=== PATIENT | male | born 1985 | race Caucasian/White ===

== ENCOUNTER 2018-08-02 15:09 | Emergency (ER) | payer MEDICAID, SELFPAY ==
[2018-08-02 15:33] VITALS: PULSE 60; RESP 16; TEMP 36.5
--- NOTE | 2018-08-02 15:52 | ED.GENADUL_ITS ---
Discharge Plan Disposition Patient Disposition: HOME Condition: Good Discharge Details Chief Complaint: FacialProb Clinical Impression: Congestion of nasal sinus Reason For Visit: facial swelling Primary Care Provider: Joe Johansen ED Provider: Keith Castanon Home Meds and New Rx's Prescriptions: New fluticasone 50 mcg/actuation spray,suspension 2 spray JG DAILY Qty: 9.9 RF: 0 loratadine 10 mg tablet 10 mg PO DAILY Qty: 14 RF: 0 No Action selenium sulfide 180 ML shampoo 180 ml Topical PRN PRNRF: 0 omeprazole 20 MG capsule,delayed release(DR/EC) 40 mg PO DAILY RF: 0 dicyclomine 10 MG capsule 10 mg PO BID PRN PRNRF: 0 Discharge Instructions Instructions: Sinusitis (ED) Additional Instructions: Please take medications as directed. If you notice any worsening of your symptoms, or any new symptoms such as vomiting, diarrhea, fever, chills, shortness of breath, chest pain, numbness, weakness, or fainting , please return immediately to the emergency department for reevaluation. Please follow up with your primary care provider as soon as possible for reassessment and reevaluation. As always, it was a pleasure participating in your medical care today. Referrals: Joe Johansen [Primary Care Provider] - Medical Decision Making This is a pleasant 33-year-old male who presents today for evaluation of right- sided sinus pressure, with subjective swelling by the frenulum of his lip, as well as a subjective tingling-like sensation over the V2 distribution of the trigeminal nerve. Physical exam demonstrates no evidence of peridental abscess, significant swelling by the frenulum, signs of facial swelling, facial droop, neurologic deficits or other abnormality. For further diagnostic evaluation I did take a 22-gauge needle did a small laceration over the area of the frenulum where the patient felt that he had a fluid collection, there was no evidence of pus or other abnormality noted on aspiration. He has notable tenderness and fullness over the right frontal and maxillary sinus, I feel his signs and symptoms are clinically consistent with mild sinusitis in conjunction with slight nerve irritation of the V2 branch of the trigeminal nerve secondary to the sinusitis. As his symptoms have only been present for 3 days a do not think antibiotics are indicated at this time, especially in conjunction with his normal and reassuring vital signs, no signs or symptoms consistent with systemic infections. Patient will be given a steroid nasal spray, as well as antihistamine. We had a long and thorough discussion regarding red flags which to return including worsening of symptoms or signs or symptoms concerning for infection. I have extensively reviewed the treatment plan and discharge instructions with the patient and their family. I have addressed all patient concerns at this time. The patient and family was made aware of what symptoms to monitor for that would warrant a return to the emergency department. Discussed the plan with the patient and family, they demonstrate verbal understanding and agreement with our assessment and plan at this time. HPI General Date/Time Provider Initiated Documentation: 08/02/18 15:41 . HPI Narrative: This is a pleasant 33-year-old male with no significant past medical history who presents today for evaluation of subjective swelling by the frenulum of his upper lip, in conjunction with right-sided facial pressure. Patient states that for the last 3 days he has had these symptoms. He has some associated tingling-like sensation over his right upper lip, and the right cheek in the area of his maxillary sinus. He does admit to notable congestion in this area, the feeling of fluid in the area as well. He denies any weakness, change in vision, rash, ear pain, or other complaints. He has taken [id number] antihistamines and this is notably improved his symptoms. He denies any other complaints at this time. He does have a history of dental cavities, however he denies any purulent drainage, dental pain or pain with eating or chewing. Related Data Home Medications Medication Instructions Recorded Confirmed omeprazole 40 mg PO DAILY 10/28/15 08/02/18 dicyclomine 10 mg PO BID PRN PRN 04/29/16 08/02/18 selenium sulfide 180 ml TOPICAL PRN PRN script NS 01/12/18 08/02/18 fluticasone 2 spray JG DAILY #9.9 gm 08/02/18 loratadine 10 mg PO DAILY #14 tab 08/02/18 Previous Rx's Medication Instructions Recorded fluticasone 2 spray JG DAILY #9.9 gm 08/02/18 loratadine 10 mg PO DAILY #14 tab 08/02/18 Allergies Allergy/AdvReac Type Severity Reaction Status Date / Time clindamycin Allergy Unknown Unverified 02/18/18 09:40 General Stated Complaint: FacialProb SANDRA: 4 Review of Systems Review of Systems All systems reviewed & are unremarkable except as noted in HPI and below PFSH Medical History Abnormal weight gain Balanitis Chronic anemia Ganglion, right wrist Generalized abdominal pain History of infectious disease of central nervous system Impaired glucose tolerance Irritable bowel syndrome with diarrhea Localized enlarged lymph nodes Pharyngitis Pityriasis versicolor Surgical History Colonoscopy - IV Sedation Excision Ganglion Cyst right hand (02/18/18) Tonsillectomy Social History Smoking/Tobacco Use Status: Current every day Exam Narrative Exam Narrative: 1.Const: Well-nourished, Well-developed, appearing stated age 2.Eyes: PERRL, no conjunctival injection, and symmetrical lids. 3.ENT: Atraumatic external nose and ears. Moist MM. Neck: Symmetric, trachea midline, No thyromegaly. Oral cavity demonstrates absolute minimal swelling by the frenulum of the patient's upper lip. No swelling of the lip itself. No evidence of significant abscess. Notable dental caries in the front teeth, however no evidence of drainage. No evidence of otitis media, normal tympanic membranes and ear canals. Patient demonstrates good movement of cervical neck. There is no nuchal rigidity, no nuchal tenderness. Patient is able to flex the neck without any difficulty or significant pain. Notable tenderness on percussion of the frontal and maxillary sinuses on the right, not on the left though. No evidence of mastoid tenderness, or abnormalities in the nose. 4.CVS: +S1/S2, No murmurs or gallops. Peripheral pulses 2+ and equal in all extremities. Brisk capillary refill in all extremities. 5.RESP: Unlabored respiratory effort. Clear to auscultation bilaterally. No wheezes rales or rhonchi 6.GI: Soft, Nontender/Nondistended, No hepatosplenomegaly. No guarding or r ebound. 7.MSK: Normocephalic/Atraumatic, Extremities w/o deformity or ttp No cyanosis or clubbing, Normal movement of all extremities 8.Skin: Warm, Dry. No rashes or lesions. 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 Sensation grossly intact, no focal neurologic deficits. All 6 cardinal planes of vision are fully intact. No evidence of rotatory or vertical nystagmus. The patient demonstrated a normal khogal-fmzo-zpyier, good dexterity. There was no evidence of dysdiadochokinesia. Patient was able to ambulate without difficulty. There was no wide-based gait. Romberg, and ecaf-ji-vbwr are both normal on testing. Sensation was intact bilaterally as well as muscle strength bilaterally for all extremities. Patient was able to verbalize butter cup with no slurring, or miss pronunciation. Sub jective tingling over the V2 distribution of the trigeminal nerve, however intact sensation, no abnormalities or deficits to both light touch and pinprick. 10.Psych: (AAO) x3. Appropriate mood and affect Course Vital Signs Temperature 36.5 C 08/02/18 15:33 Pulse 60 08/02/18 15:33 Respiratory Rate 16 08/02/18 15:33 Temperature 36.5 C 08/02/18 15:33 Temperature Source Temporal Artery Scan 08/02/18 15:33 Pulse 60 08/02/18 15:33 Respiratory Rate 16 08/02/18 15:33 Respiratory Effort 08/02/18 15:37 Blood Pressure Position Sitting 08/02/18 15:33 Oxygen Delivery Method Room Air 08/02/18 15:33 Oxygen Flow Rate 0 08/02/18 15:33 Pain Level 5 08/02/18 15:33
[2018-08-02 16:05] VITALS: PULSE 60; RESP 16; TEMP 36.5; O2SAT 96
== END 2018-08-02 16:06 | disposition home or self-care (01) ==
PROVIDERS: Emergency Provider Student in an Organized Health Care Education/Training Program; PCP Family Medicine
DX: R09.81 Nasal congestion (principal)
CPT/HCPCS: 99283

== ENCOUNTER 2019-02-15 16:06 | Emergency (ER) | payer MEDICAID, SELFPAY ==
[2019-02-15 16:12] VITALS: BP 134/80; PULSE 63; RESP 16; TEMP 36.6; O2SAT 99
--- NOTE | 2019-02-15 17:19 | ED.GENADUL_ITS ---
Discharge Plan Disposition Patient Disposition: HOME Discharge Details Chief Complaint: DentalOral Clinical Impression: Abscess, dental Primary Care Provider: Joe Johansen ED Provider: Arnold Crystal Home Meds and New Rx's Prescriptions: New penicillin V potassium 500 mg tablet 500 mg PO QID Qty: 27 RF: 0 Continued omeprazole 20 MG capsule,delayed release(DR/EC) 40 mg PO DAILY RF: 0 dicyclomine 10 MG capsule 10 mg PO BID PRN PRNRF: 0 fluticasone propionate 50 mcg/actuation spray,suspension 2 spray JG DAILY Qty: 9.9 RF: 0 Discharge Instructions Instructions: Dental Abscess (ED) Additional Instructions: Please take antibiotic as prescribed. Please take ibuprofen over the counter. Take 600mg by mouth every 6 hours as needed for pain. Please a dentist to arrange timely outpatient follow-up. Call tomorrow. Return to the ER for any worsening or new concerning symptoms. Referrals: Joe Johansen [Primary Care Provider] - Discharge Data Discharge Date/Time-TO BE ENTERED AT DEPARTURE: 02/15/19 18:15 Medical Decision Making 33-year-old male here with dental abscess. Abscess incised and drained. Patient started on penicillin. Usual and customary discharge instructions were provided. Patient was encouraged to follow-up with a dentist. HPI General Mode of arrival: ambulatory . Date/Time Provider Initiated Documentation: 02/15/19 16:27 . Limitations to Documentation: no limitations . Information obtained by: patient . HPI Narrative: 33-year-old male with history of dental abscess in the past, here with dental pain and concern for dental infection. Patient notes he has had pain in his right upper incisor for the past 2 days. Pain has persisted. No modifiers. He has associated pain radiating into his right cheek. He notes he had some associated purulent discharge from adjacent tooth. No associated fever. Related Data Home Medications Medication Instructions Recorded Confirmed omeprazole 40 mg PO DAILY 10/28/15 02/15/19 dicyclomine 10 mg PO BID PRN PRN 04/29/16 02/15/19 fluticasone propionate 2 spray JG DAILY #9.9 gm 08/02/18 02/15/19 penicillin V potassium 500 mg PO QID #27 tab 02/15/19 Previous Rx's Medication Instructions Recorded fluticasone propionate 2 spray JG DAILY #9.9 gm 08/02/18 penicillin V potassium 500 mg PO QID #27 tab 02/15/19 Allergies Allergy/AdvReac Type Severity Reaction Status Date / Time sulfamethoxazole Allergy Intermediate Unverified 02/15/19 17:32 [From Bactrim] trimethoprim [From Bactrim] Allergy Intermediate Unverified 02/15/19 17:32 clindamycin Allergy Unknown Unverified 02/18/18 09:40 General Stated Complaint: DentalOral SANDRA: 4 Review of Systems Constitutional Denies fever(s) ENT Reports as per HPI [facility] Medical History Abnormal weight gain Balanitis Chronic anemia Ganglion, right wrist Generalized abdominal pain History of infectious disease of central nervous system Impaired glucose tolerance Irritable bowel syndrome with diarrhea Localized enlarged lymph nodes Pharyngitis Pityriasis versicolor Surgical History Colonoscopy - IV Sedation Excision Ganglion Cyst right hand (02/18/18) Tonsillectomy Social History Smoking/Tobacco Use Status: Current every day Drug use: Never Do you feel safe in your relationship?: Yes Exam Const General: cooperative and no acute distress HENMT Head: normocephalic Face and sinus: sinuses nontender, face symmetric, no erythema and no edema Mouth: moist mucous membranes Teeth and gingiva: poor dentition and other (Tooth #8 with mild swelling and tenderness along gumline) Throat: posterior oropharynx normal Eyes Conjunctivae: normal conjunctivae EOM: EOM intact bilaterally Neck Neck: trachea midline and supple Resp Auscultation: clear to auscultation bilaterally, no rales, no rhonchi and no wheezes Cardio Jugular venous pressure: no JVD Rate: regular rate and not tachycardic Rhythm: regular rhythm Skin General skin exam: no rashes or lesions noted Neuro General: alert, awake and tone normal Psych Appearance: grossly normal Mental Status: mental status grossly normal Course Vital Signs Temperature 36.6 C 02/15/19 16:12 Pulse 63 02/15/19 16:12 Respiratory Rate 16 02/15/19 16:12 Blood Pressure 134/80 02/15/19 16:12 Pulse Oximetry 99 08/20/19 16:12 Temperature 36.6 C 02/15/19 16:12 Temperature Source Temporal Artery Scan 02/15/19 16:12 Pulse 63 02/15/19 16:12 Respiratory Rate 16 02/15/19 16:12 Respiratory Effort Non-Labored 02/15/19 16:19 Blood Pressure 134/80 02/15/19 16:12 Blood Pressure Position Supine 02/15/19 16:12 Pulse Oximetry 99 02/15/19 16:12 Oxygen Delivery Method Room Air 02/15/19 16:12 Oxygen Flow Rate 0 02/15/19 16:12 Procedures Abscess I/D Site: Other (periapical dental) Side (if applicable): Right Local Anesthetic: Lidocaine 1% Amount of anesthesia used (mL): 2 Technique: Incised with #11 Blade Amount of fluid expressed (mL): 1 Complications: Bleeding (<1cc, resolved)
[2019-02-15] MEDS: Benzocaine 20% Gel 30 GM JAR MM (17:34)
== END 2019-02-15 18:15 | disposition home or self-care (01) ==
PROVIDERS: Emergency Provider Student in an Organized Health Care Education/Training Program; PCP Family Medicine
DX: K04.7 Periapical abscess without sinus (principal)
CPT/HCPCS: 99283

== ENCOUNTER 2019-06-10 14:42 | Emergency (ER) | payer MEDICAID, SELFPAY ==
[2019-06-10 14:46] VITALS: BP 131/105; PULSE 65; RESP 16; TEMP 36.5; O2SAT 96
--- NOTE | 2019-06-10 15:21 | DI.RAD_ITS ---
EXAM: XR HIP RT COMPLETE AP PELVIS CLINICAL HISTORY: R hip pain, r/o acute fracture. TECHNIQUE: 2D digital imaging was performed. COMPARISON: LUMBAR SPINE AP, LAT from 08/19/2015 FINDINGS: BONES: No acute fracture is present. No bony destructive lesion is seen. JOINTS: No dislocation present. SOFT TISSUE: Normal. IMPRESSION: Unremarkable radiographs of the right hip. Unremarkable radiographs of the pelvis.
--- NOTE | 2019-06-10 15:55 | ED.GENADUL_ITS ---
Discharge Plan Disposition Patient Disposition: HOME Condition: Good Discharge Details Chief Complaint: Orthopedic Clinical Impression: Muscle strain Primary Care Provider: Joe Johansen ED Provider: Slime Galvez Home Meds and New Rx's Prescriptions: Continued omeprazole 20 MG capsule,delayed release(DR/EC) 40 mg PO DAILY RF: 0 dicyclomine 10 MG capsule 10 mg PO BID PRN PRNRF: 0 fluticasone propionate 50 mcg/actuation spray,suspension 2 spray JG DAILY Qty: 9.9 RF: 0 Discharge Instructions Instructions: Muscle Strain (ED), Hip Pain (ED) Additional Instructions: Encourage hydration. Encourage gentle stretching and frequent walking. Attached is information on stretching activities that may help with your discomfort. We will also include physical therapy referral. Please continue with the Aleve twice a day. May augment this with ibuprofen throughout the course the day. Available [id number] Lidoderm patches or S to help with discomfortalonpas patches. Please follow-up with primary care in 2 weeks if not improved. Please encourage weight loss. Avoid activities that cause increased discomfort. Referrals: Joe Johansen [Primary Care Provider] - Discharge Data Discharge Date/Time-TO BE ENTERED AT DEPARTURE: 06/10/19 16:30 Medical Decision Making Patient is a 33-year-old obese man presenting today with chief complaint of right hip pain. 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 States that he was squatting down frequently. Noted after this to have an area of swelling primarily along the superior lateral aspect of his hip. Pain is experienced as a burning sensation that can radiate down the lateral mid thigh. No weakness. No numbness or tingling. Denies any actual trauma to the hip. Reports that the pain is increased and today he felt a pop over the lateral aspect of the hip. Denies any fevers or chills. No recent travel. No previous injuries or surgeries to this hip. Does not have any pain with range of motion of the hip. Does not experience any worsening in symptoms with movements. On exam, patient's has full range of motion of his right hip. He has 5-5 strength in all [place]. 2+ distal pulses. No pain over the greater trochanter. Pain is elicited with palpation about the iliac crest. Given the sensation of the popping, will obtain imaging although I find fracture less likely. XR reviewed by radiologist: FINDINGS: BONES: No acute fracture is present. No bony destructive lesion is seen. JOINTS: No dislocation present. SOFT TISSUE: Normal. IMPRESSION: Unremarkable radiographs of the right hip. Unremarkable radiographs of the pelvis. Discussed these findings with the patient. Advised that the onset of symptoms is most consistent with muscle strain. I encouraged weight loss as his exces sive weight is also likely contributing to his joint pain. He has reports chronic back pain which may also be contributing by his weight. I encouraged use of anti-inflammatories and Tylenol. Will be given a Lidoderm patch while here. Advise follow-up with primary care. We did discuss referral to physical therapy although he is concerned he may not be able to get to appointments. I did encourage that he try to get to a few and receive home exercises. We will attempt to find stretching techniques for the patient prior to discharge. He was given return precautions. All his questions and concerns were addressed and he is in agreement this plan. HPI General Mode of arrival: ambulatory . Date/Time Provider Initiated Documentation: 06/10/19 14:59 . Limitations to Documentation: no limitations . Information obtained by: patient and family (Accompanied by ) . History of Present Illness 33 year old M presents to the emergency department with the chief complaint of Right hip pain, described as moderate, with intensity rated at 7. Quality is described as burning and aching, and is localized to the right and lower extremity. Patient extremity (2 mid lateral right thigh). Patient started experiencing this day(s) (3) and it has been constant and now resolved. No relieving factors improve symptom(s), No exacerbating factors reported . Patient notes no other symptoms.. Patient did receive the following treatments prior to arrival, NSAID (Aleve this morning) Related Data Home Medications Medication Instructions Recorded Confirmed omeprazole 40 mg PO DAILY 10/28/15 06/10/19 dicyclomine 10 mg PO BID PRN PRN 04/29/16 06/10/19 fluticasone propionate 2 spray JG DAILY #9.9 gm 08/02/18 06/10/19 Previous Rx's Medication Instructions Recorded fluticasone propionate 2 spray JG DAILY #9.9 gm 08/02/18 Allergies Allergy/AdvReac Type Severity Reaction Status Date / Time sulfamethoxazole Allergy Intermediate Unverified 06/10/19 14:50 [From Bactrim] trimethoprim [From Bactrim] Allergy Intermediate Unverified 06/10/19 14:50 clindamycin Allergy Unknown Unverified 06/10/19 14:50 General Stated Complaint: Orthopedic SANDRA: 3 Review of Systems Constitutional Constitutional: Reports as per HPI, Denies chills, Denies fever(s), Denies headache(s) and Denies weakness ENT Ears, Nose, Mouth, and Throat: Denies headache(s) Cardiovascular Cardiovascular: Reports as per HPI Respiratory Respiratory: Reports as per HPI and Denies cough Musculoskeletal Musculoskeletal: Reports as per HPI and Denies tingling Integumentary/Breasts Skin/Breast: Reports as per HPI, Denies rash and Denies wounds Neurologic Neurologic: Reports as per HPI, Denies headache(s), Denies tingling, Denies paresthesias and Denies weakness [facility] Medical History Abnormal weight gain Balanitis Chronic anemia Ganglion, right wrist Generalized abdominal pain History of infectious disease of central nervous system Impaired glucose tolerance Irritable bowel syndrome with diarrhea Localized enlarged lymph nodes Pharyngitis Pityriasis versicolor Surgical History Colonoscopy - IV Sedation Excision Ganglion Cyst right hand (02/18/18) Tonsillectomy Social History Smoking/Tobacco Use Status: Former Tobacco Use Alcohol Intake: current Alcohol Intake frequency: holidays/special occasions only Drug use: Socially Substance use type: marijuana Do you feel safe at home: Yes Do you feel safe in your relationship?: Yes Exam Const General: cooperative, healthy appearing, comfortable, no acute distress, well developed and well groomed Nutritional Appearance: well nourished and obese Orientation: alert and awake Resp Effort & Inspection: normal respiratory effort, able to speak in complete sentences and no respiratory distress Cardio Rate: regular rate Rhythm: regular rhythm Skin General skin exam: no rashes or lesions noted Lesions: no lesions Rashes: no rashes Trauma: no lacerations or abrasions Neuro General: alert and awake Cognition: normal cognition Speech: speech normal Gait: normal gait Motor: muscle tone normal throughout Sensory Exam: no sensory deficits noted (No saddle paresthesias) Extrem General: normal to inspection, full ROM, normal capillary refill, no pedal edema, no calf tenderness and normal gait Right lower extremity: normal to inspection, full ROM, normal capillary refill, no joint enlargement, hip/thigh Details: normal to inspection, tenderness (Near the iliac crest) and normal ROM; no swelling, no abrasions, no lacerations, no ecchymosis, no crepitus, no deformity and no unusual warmth, knee Details: normal to inspection and normal ROM; no tenderness and no swelling and foot (2+ distal pulses ); no cyanosis and no edema Psych Appearance: grossly normal and well kempt Mental Status: mental status grossly normal Speech and Movement: speech and movement normal Course Vital Signs Vital signs: Vital Signs Temperature 36.5 C 06/10/19 14:46 Pulse 65 06/10/19 14:46 Respiratory Rate 16 06/10/19 14:46 Blood Pressure 131/105 H 06/10/19 14:46 Pulse Oximetry 96 06/10/19 14:46 Temperature 36.5 C 06/10/19 14:46 Temperature Source Temporal Artery Scan 06/10/19 14:46 Pulse 65 06/10/19 14:46 Respiratory Rate 16 06/10/19 14:46 Respiratory Effort Non-Labored 06/10/19 14:48 Blood Pressure 131/105 H 06/10/19 14:46 Blood Pressure Position Sitting 06/10/19 14:46 Pulse Oximetry 96 06/10/19 14:46 Oxygen Delivery Method Room Air 06/10/19 14:46 Oxygen Flow Rate 0 06/10/19 14:46 Pain Level 7 06/10/19 14:46
[2019-06-10] MEDS: Acetaminophen 500 MG TAB 1000 MG PO (16:27)
[2019-06-10] MEDS: Lidocaine 5% Patch 1 PATCH TP (16:27)
[2019-06-10 16:29] VITALS: BP 132/66; PULSE 19; RESP 19; TEMP 37.2; O2SAT 99
== END 2019-06-10 16:30 | disposition home or self-care (01) ==
PROVIDERS: Emergency Provider Physician Assistant; PCP Family Medicine
DX: S76.011A Strain of muscle, fascia and tendon of right hip, initial encounter (principal); X50.9XXA Other and unspecified overexertion or strenuous movements or postures, initial encounter
CPT/HCPCS: 99283; 73502

== ENCOUNTER 2020-12-28 16:53 | Outpatient (REF) | payer MEDICAID, SELFPAY ==
[2020-12-28 19:20] LABS: HCT 41.4 % (40.0-50.0); HGB 13.9 g/dL (13.5-17.5); MCH 30.5 pg (27.0-33.0); MCHC 33.6 % (32.0-36.0); MPV 11.8 fL (8.0-11.0); Platelet Count 258 10^3/uL (130-400); RBC 4.55 10^6/uL (4.36-5.78); RDW 12.8 % (11.8-14.1); RDW-SD 42.2 fL; WBC 9.04 10^3/uL (4.4-10.8)
[2020-12-28 19:35] LABS: ALT 62 U/L (16-63); AST 26 U/L (15-37); Albumin 4.2 g/dL (3.4-5.0); Alkaline Phosphatase 65 U/L (46-116); Anion Gap 11.6 mmol/L (3-11); BUN 11 mg/dL (7-18); Bilirubin, Total 0.5 mg/dL (0.2-1.0); CO2 24.4 mmol/L (21.0-32.0); Calculated LDL 172 mg/dL (<100); Chloride 105 mmol/L (98-107); Cholesterol 235 mg/dL (<200); Glucose 104 mg/dL (74-106); HDL Cholesterol 35 mg/dL (40-60); Potassium 3.8 mmol/L (3.5-5.1); Sodium 141 mmol/L (136-145); Total Protein 7.7 g/dL (6.4-8.2); Triglyceride 143 mg/dL (<150)
[2020-12-28 19:36] LABS: Hemoglobin A1C 7.1 % (<5.7)
== END 2020-12-28 16:54 | disposition home or self-care (01) ==
LOC: NCHCN 16:53
PROVIDERS: PCP Family Medicine; Visit Provider Nurse Practitioner Family
DX: R59.0 Localized enlarged lymph nodes (principal); D64.9 Anemia, unspecified; E66.9 Obesity, unspecified; K58.0 Irritable bowel syndrome with diarrhea
CPT/HCPCS: 80053; 80061; 85027; 83036

== ENCOUNTER 2021-03-27 19:00 | Emergency (ER) | payer MEDICAID, SELFPAY ==
[2021-03-27 19:15] VITALS: BP 138/84; PULSE 83; RESP 20; TEMP 36.7; O2SAT 98
--- NOTE | 2021-03-27 19:25 | ED.GENADUL_ITS ---
Discharge Plan Disposition Patient Disposition: HOME Condition: Stable Discharge Details Clinical Impression: Cough, Congested nose, Sinus pressure Primary Care Provider: Joe Johansen ED Provider: Slime Galvez Home Meds and New Rx's Prescriptions: No Action omeprazole 20 MG capsule,delayed release(DR/EC) 40 mg PO DAILY RF: 0 dicyclomine 10 MG capsule 10 mg PO BID PRN PRNRF: 0 fluticasone propionate 50 mcg/actuation spray,suspension 2 spray JG DAILY Qty: 9.9 RF: 0 Discharge Instructions Instructions: Acute Cough (ED) Additional Instructions: Imaging is reassuring. Your imaging and exam do not suggest recurrent pneumonia. This is likely a viral illness. Please encourage hydration. Tylenol and ibuprofen for discomfort. Particularly with your recent travel to [place], I am concerned that this could be COVID-19. Please quarantine until these results have returned. If you develop shortness of breath, chest pain or other new/worsening symptoms please seek care urgently with again otherwise, please follow-up with primary care in 1 to 2 weeks for reevaluation. Referrals: Joe Johansen [Primary Care Provider] - Discharge Data Discharge Date/Time-TO BE ENTERED AT DEPARTURE: 03/27/21 21:17 Medical Decision Making Patient is a pleasant 35-year-old male presenting today with chief complaint of cough and sinus pressure. He states that this began 1-1/2 days ago after coming back from [place]. He states that prior to going to [place], approximately 2 weeks ago, he was treated for pneumonia with Augmentin. Patient states he did have a full resolution of his symptoms at that time. Reports that when he landed from his recent trip, he had immediate onset of sinus pressure on the right side. Denies any fevers or chills. Denies any GI upset. Patient was vaccinated against COVID-19. On exam, patient appears nontoxic. He is overweight. His lungs are clear, normal cardiac exam. HEENT exam is concerning for mild erythema in the posterior oropharynx. He does state he has had some blood-tinged sputum. No gross hemoptysis. The patient was just recently treated for pneumonia, I am concerned that he did not have full resolution will obtain x-ray. We will also send out Covid testing. Patient otherwise appears nontoxic. No respiratory distress. No chest pain.. Patient symptoms not consistent with pulmonary embolism. Much more consistent with infectious etiology. FINDINGS: Lungs: The lungs are clear. There is no pulmonary vascular congestion. Pleural spaces: There are no pleural effusions present. Heart/Mediastinum: The cardiomediastinal silhouette is within normal limits. Bones/joints: Unremarkable. IMPRESSION: No active cardiopulmonary disease identified. Discussed findings with the patient. Advised likely viral illness. I did express concern potential COVID-19. Outpatient Covid testing has been sent. Encourage hydration. Advised Tylenol and/or ibuprofen as needed for discomfort. I did encourage you to quarantine until results are back. We will call him with the results. Return precautions were discussed. Advise follow-up with primary care 2weeks for reevaluation. All of his questions and cocnerns were addressed, he is in agreement with this plan. Patient declined work note. HPI General Mode of arrival: ambulatory . Date/Time Provider Initiated Documentation: 03/27/21 19:24 . Limitations to Documentation: no limitations . Information obtained by: patient and RN notes reviewed . History of Present Illness 35 year old M presents to the emergency department with the chief complaint of cough, congestion, described as moderate, with intensity rated at 1 (he denies any pain). and is localized to the face and chest. Patient started experiencing this day(s) (2) and it has been constant. No relieving factors improve symptom(s), No exacerbating factors reported . Patient notes cough and fever/chills (t max 99.5); denies chest pain, headaches, loss of appetite, nausea/vomiting, rash and shortness of breath. Patient did receive the following treatments prior to arrival, none Related Data Home Medications Medication Instructions Recorded Confirmed omeprazole 40 mg PO DAILY 10/28/15 03/27/21 dicyclomine 10 mg PO BID PRN PRN 04/29/16 03/27/21 fluticasone propionate 2 spray JG DAILY #9.9 gm 08/02/18 03/27/21 Previous Rx's Medication Instructions Recorded fluticasone propionate 2 spray JG DAILY #9.9 gm 08/02/18 Allergies Allergy/AdvReac Type Severity Reaction Status Date / Time sulfamethoxazole Allergy Intermediate Unverified 03/27/21 19:20 [From Bactrim] trimethoprim [From Bactrim] Allergy Intermediate Unverified 09/29/21 19:20 clindamycin Allergy Unknown Unverified 03/27/21 19:20 General Stated Complaint: RespSymp SANDRA: 4 Review of Systems Constitutional Constitutional: Reports as per HPI and Denies headache(s) Eyes Eyes: Reports as per HPI, Denies eye discharge and Denies irritation ENT Ears, Nose, Mouth, and Throat: Reports as per HPI and Denies headache(s) Cardiovascular Cardiovascular: Reports as per HPI, Denies chest pain and Denies dyspnea Respiratory Respiratory: Reports as per HPI, Reports chest congestion, Reports cough, Denies hemoptysis, Denies excessive phlegm production and Denies dyspnea Gastrointestinal Gastrointestinal: Reports as per HPI, Denies abdominal pain, Denies change in bowel habits, Denies nausea and Denies vomiting Integumentary/Breasts Skin/Breast: Reports as per HPI and Denies rash Neurologic Neurologic: Reports as per HPI and Denies headache(s) [facility] Medical History (Updated 03/27/21 @ 21:02 by TANVI Bagley) Abnormal weight gain Balanitis Chronic anemia Ganglion, right wrist Generalized abdominal pain History of infectious disease of central nervous system Impaired glucose tolerance Irritable bowel syndrome with diarrhea Localized enlarged lymph nodes Pharyngitis Pityriasis versicolor Surgical History Colonoscopy - IV Sedation Excision Ganglion Cyst right hand (02/18/18) Tonsillectomy Social History Smoking/Tobacco Use Status: Former Tobacco Use Smoking risk assessment performed?: Yes Alcohol Intake: current Alcohol Intake frequency: holidays/special occasions only Drug use: Socially Substance use type: marijuana Do you feel safe at home: Yes Do you feel safe in your relationship?: Yes Exam Const General: cooperative, healthy appearing, comfortable, no acute distress, well developed and well groomed Nutritional Appearance: well nourished and obese Orientation: alert and awake [facility] Head: normal to inspection, normocephalic and atraumatic Ears: hearing grossly normal bilaterally, external ears normal and TM's normal bilaterally General nose exam: external nose normal and nares normal Face and sinus: normal facial exam, sinuses nontender and face symmetric Mouth: oral mucosae normal, lip normal, tongue normal, oropharynx normal and moist mucous membranes Teeth and gingiva: dentition normal Throat: posterior oropharynx abnormal (mild erythema), tonsils normal and uvula midline Eyes General: appearance normal, both eyes and all related structures Neck Neck: normal visual inspection, full ROM and no lymphadenopathy Resp Effort & Inspection: normal respiratory effort, able to speak in complete sentences and no respiratory distress Auscultation: clear to auscultation bilaterally, no rales, no rhonchi and no wheezes Cardio Rate: regular rate Rhythm: regular rhythm Heart Sounds: S1 normal and S2 normal Skin General skin exam: no rashes or lesions noted Neuro General: patient alert and patient awake Cognition: normal cognition Speech: speech normal Gait: normal gait Psych Appearance: grossly normal and well kempt Mental Status: mental status grossly normal Speech and Movement: speech and movement normal Course Vital Signs Vital signs: Vital Signs Temperature 36.7 C 03/27/21 19:15 Pulse 83 03/27/21 19:15 Respiratory Rate 20 03/27/21 19:15 Blood Pressure 138/84 03/27/21 19:15 Pulse Oximetry 98 03/27/21 19:15 Temperature 36.7 C 03/27/21 19:15 Temperature Source Temporal Artery Scan 03/27/21 19:15 Pulse 83 03/27/21 19:15 Respiratory Rate 20 03/27/21 19:15 Respiratory Effort Non-Labored 03/27/21 19:21 Blood Pressure 138/84 03/27/21 19:15 Blood Pressure Position Sitting 03/27/21 19:15 Pulse Oximetry 98 03/27/21 19:15 Oxygen Delivery Method Room Air 03/27/21 19:15 Oxygen Flow Rate 0 03/27/21 19:15 Pain Level 2 03/27/21 19:15 PAWSS Pt Consumed Any Amount of Alcohol Within the Last 30 days OR had positive [place] Upon Admission: No
--- NOTE | 2021-03-27 19:51 | DI.RAD_ITS ---
Exam(s) XR PORTABLE CHEST AP EXAM: XR PORTABLE CHEST AP CLINICAL HISTORY: cough, recent pneumonia TECHNIQUE: 2D digital imaging was performed of the chest. Two images were obtained. AP views were obtained. COMPARISON: CR CHEST 2 VIEWS PA,LAT from 10/28/2015 CR CHEST 2 VIEWS PA,LAT from 10/28/2015 FINDINGS: MEDIASTINUM: Normal. HEART: Normal. PULMONARY VASCULATURE: Normal. LUNGS: Clear. PLEURAL SPACE: No pleural effusion or pneumothorax. BONE:Within normal limits for the patient's age. OTHER FINDINGS:Normal. IMPRESSION: No acute pulmonary findings. DATA REPOSITORY: RADIATION DOSE DELIVERED:
--- NOTE | 2021-03-27 20:25 | DI.VRAD_ITS ---
PROCEDURE INFORMATION: Exam: XR Chest Exam date and time: 03/27/2021 7:39 PM Age: 35 years old Clinical indication: Patient HX: Productive cough TECHNIQUE: Imaging protocol: XR of the chest. Views: 1 view. COMPARISON: CR CHEST 2 VIEWS PA,LAT 10/28/2015 11:09 PM FINDINGS: Lungs: The lungs are clear. There is no pulmonary vascular congestion. Pleural spaces: There are no pleural effusions present. Heart/Mediastinum: The cardiomediastinal silhouette is within normal limits. Bones/joints: Unremarkable. IMPRESSION: No active cardiopulmonary disease identified. Dictated and Authenticated by: Charli Ramírez MD. Ordering:CHERYL Palencia MD
[2021-03-27 21:11] VITALS: BP 135/90; PULSE 82; RESP 20; O2SAT 98
[2021-03-29 11:04] LABS: COVID-19 RT-PCR UVMMC Result Positive (Negative)
--- NOTE | 2021-03-29 13:19 | W.ED.FU ---
Patient notified regarding positive Covid test, symptomatic February, made aware that he should isolate for at least 10 days and given a work note
== END 2021-03-27 21:17 | disposition home or self-care (01) ==
PROVIDERS: Emergency Provider Physician Assistant; PCP Family Medicine
DX: R05 Cough (principal); R09.81 Nasal congestion; J34.89 Other specified disorders of nose and nasal sinuses; Z20.822 Contact with and (suspected) exposure to COVID-19
CPT/HCPCS: 99283; U0003; 71045

== ENCOUNTER 2021-04-02 02:52 | Outpatient (CLI) | payer MEDICAID, SELFPAY ==
[2021-04-02 07:55] VITALS: BP 109/77; PULSE 61; RESP 17; TEMP 36.3; O2SAT 97
[2021-04-02 08:19] VITALS: BP 123/80; PULSE 65; RESP 18; TEMP 36.4; O2SAT 96
[2021-04-02 08:50] VITALS: BP 124/81; PULSE 64; RESP 17; TEMP 36.3; O2SAT 95
[2021-04-02 09:20] VITALS: BP 121/81; PULSE 64; RESP 18; TEMP 36.3; O2SAT 97
[2021-04-02 09:50] VITALS: BP 127/81; PULSE 61; RESP 17; TEMP 36.4; O2SAT 96
== END 2021-04-02 02:53 | disposition home or self-care (01) ==
LOC: INF 02:53
PROVIDERS: PCP Family Medicine; Visit Provider Family Medicine
DX: U07.1 COVID-19 (principal)
CPT/HCPCS: 96365

== ENCOUNTER 2021-10-10 10:13 | Outpatient (REF) | payer MEDICAID, SELFPAY ==
[2021-10-10 14:19] LABS: Calculated LDL 166 mg/dL (<100); Cholesterol 223 mg/dL (<200); HDL Cholesterol 41 mg/dL (40-60); Triglyceride 80 mg/dL (<150)
[2021-10-10 14:40] LABS: Hemoglobin A1C 6.1 % (<5.7)
== END 2021-10-10 10:14 | disposition home or self-care (01) ==
LOC: NCHCN 10:13
PROVIDERS: PCP Family Medicine; Visit Provider Nurse Practitioner Family
DX: E11.9 Type 2 diabetes mellitus without complications (principal)
CPT/HCPCS: 80061; 83036

== ENCOUNTER 2021-10-11 00:33 | Outpatient (CLI) | payer MEDICAID, SELFPAY ==
--- NOTE | 2021-10-11 07:45 | DI.CT_ITS ---
Exam(s) CT SINUS WO EXAM: CT SINUS WO CLINICAL HISTORY: chronic sinusitis right side,j32.9. Evaluate for sinusitis. TECHNIQUE: Imaging Protocol: Axial computed tomography images with coronal and sagittal reformatted images were created and reviewed. COMPARISON: CT HEAD AND CSPINE W/O CONTRAST from 08/19/2015 FINDINGS: AXIAL IMAGES: Frontal sinuses: Normally aerated. Ethmoid air cells: Normally aerated. Maxillary sinuses: Normally aerated. Sphenoid sinus: Normally aerated. Ostiomeatal complexes: Patent. Osseous nasal septum: The nasal septum mildly deviates to the left. Visualized regional soft tissues: No acute findings. Orbits: Unremarkable. Bones: Unremarkable. Mastoid Air Cells: Normally aerated. IMPRESSION: No evidence of sinus disease. RADIATION DOSE DELIVERED: 133.36mGy.cm Total DLP 133.36mGy.cm Total DLP DATA REPOSITORY: All CT scans at this facility are submitted to the National Radiology Data Registry (NRDR) Dose Index Registry (DIR) with the [employer] (ACR). RADIATION OPTIMIZATION: All CT scans at this facility use at least one of these dose optimization te chniques: automated exposure control; mA and/or kV adjustment per patient size (includes targeted exa ms where dose is matched to clinical indication); or iterative reconstruction.
== END 2021-10-11 00:53 ==
PROVIDERS: PCP Family Medicine; Visit Provider Otolaryngology
DX: J34.2 Deviated nasal septum; J32.8 Other chronic sinusitis
CPT/HCPCS: 70486

== ENCOUNTER 2021-12-08 14:52 | Emergency (ER) | payer MEDICAID, SELFPAY ==
[2021-12-08 14:58] VITALS: BP 121/79; PULSE 85; RESP 16; TEMP 36.4; O2SAT 96
--- NOTE | 2021-12-08 15:04 | ED.GENADUL_ITS ---
Discharge Plan Disposition Patient Disposition: HOME Condition: Stable Discharge Details Clinical Impression: Injury of knee, right Primary Care Provider: Lolita Rick ED Provider: Roly Garcias Home Meds and New Rx's Prescriptions: No Action albuterol sulfate [ProAir HFA] 90 mcg/actuation HFA aerosol inhaler 2 puff inhalation Q6H PRN nystatin 100,000 unit/gram cream 1 applic topical BID selenium sulfide 2.5 % lotion 1 applic topical QWEEK omeprazole 20 MG capsule,delayed release(DR/EC) 40 mg PO DAILY dicyclomine 10 MG capsule 10 mg PO BID PRN PRN Discharge Instructions Instructions: Knee Sprain (ED), Hinged Knee Brace (ED) Additional Instructions: Review of your x-rays show no acute signs of fracture or dislocation. I suspect either meniscus or ligament injury to your right knee. You may perform weightbearing activities as tolerated and use the hinged knee brace for discomfort and activity. You may continue to take [id number] pain medication as required and apply ice for swelling. Just do not apply ice for greater than 20 minutes and allow at least 20 minutes in between applications. We have given a referral to the orthopedist for reassessment of your knee. Please call the office tomorrow for arrangement of your follow-up appointment. Referrals: [facility] [Provider Group] Medical Decision Making Patient presenting to the emergency department for chief complaint of right knee injury. he reports a twisting type injury to the right knee while walking down the steps backwards. Patient denies any other injury or trauma. Patient has been using a Velcro knee brace for the past week but is still continuing to have pain and discomfort. Physical exam shows tenderness to the medial joint line with patient reporting pain with twisting type motions and discomfort to that medial aspect. Exam is otherwise unremarkable. We will plan on performing radiological imaging to ensure no signs of acute fracture or obvious findings on plain film imaging but I suspect either meniscus or ligamentous injury to the lateral aspect of the knee. Patient denies any need for pain medication pending x-rays. My review of plain film imaging shows no acute fracture or dislocation. We will plan on discharging patient with hinged knee brace and having patient follow-up with orthopedist for reassessment given that it is already been 1 week and patient is still having significant amount of pain and discomfort. Will encourage patient to use [id number] pain medication and ice as needed. After discussion of diagnosis and plan of care patient has no further needs, questions, or concerns and states clear understanding to return to the emergency department for any worsening symptoms. This documentation was generated using [employer] system, please disregard any oddities of phrase or misspellings. Imaging Data Radiologic Study: Imaging: X-Ray Radiologist's impression: IMPRESSION: Small knee joint effusion. Right knee otherwise normal. HPI General Mode of arrival: ambulatory . Date/Time Provider Initiated Documentation: 12/08/21 14:56 . Limitations to Documentation: no limitations . Information obtained by: patient and RN notes reviewed . History of Present Illness 36 year old M presents to the emergency department with the chief complaint of right knee injury, described as mild, with intensity rated at 2. Quality is described as aching, and is localized to the right and lower extremity. Patient reports no radiation. Patient started experiencing this week(s) (1) and it has been constant. No relieving factors improve symptom(s), Movement worsens symptoms . Patient notes no other symptoms.. Patient did receive the following treatments prior to arrival, NSAID Related Data Home Medications Medication Instructions Recorded Confirmed omeprazole 20 mg capsule,delayed 40 mg PO DAILY 10/28/15 12/08/21 release dicyclomine 10 mg capsule 10 mg PO BID PRN PRN 04/29/16 12/08/21 albuterol sulfate 90 mcg/actuation 2 puff inhalation Q6H PRN 08/01/21 12/08/21 aerosol inhaler (ProAir HFA) nystatin 100,000 unit/gram topical 1 applic topical BID 08/01/21 12/08/21 cream selenium sulfide 2.5 % lotion 1 applic topical QWEEK 08/01/21 12/08/21 Allergies Allergy/AdvReac Type Severity Reaction Status Date / Time sulfamethoxazole Allergy Intermediate Unverified 12/08/21 15:41 [From Bactrim] trimethoprim [From Bactrim] Allergy Intermediate Unverified 12/08/21 15:41 clindamycin Allergy Unknown Unverified 12/08/21 15:41 General Stated Complaint: Orthopedic SANDRA: 4 Review of Systems Narrative: 6 systems reviewed and unremarkable except what is marked below. Musculoskeletal Musculoskeletal: Denies back pain, Reports joint swelling, Reports limited range of motion, Denies numbness and Denies tingling Integumentary/Breasts Skin/Breast: Denies wounds Neurologic Neurologic: Denies numbness and Denies tingling PFSH All Active Problems (Updated 12/08/21 @ 15:49 by Roly Garcias NP) Injury of knee, right (Acute) Weight gain (Acute) Snoring (Acute) Chronic headaches (Acute) Chronic sinusitis (Acute) Cough (Acute) Congested nose (Acute) Sinus pressure (Acute) Medical History Abnormal weight gain Anemia Balanitis Cervical lymphadenopathy Chronic anemia COVID-19 Depressed Diabetes mellitus Ganglion, right wrist Generalized abdominal pain History of infectious disease of central nervous system Hyperlipidemia Impaired glucose tolerance Irritable bowel syndrome with diarrhea Localized enlarged lymph nodes Obesity Pharyngitis Pityriasis versicolor Rhinosinusitis Surgical History Colonoscopy - IV Sedation Excision Ganglion Cyst right hand (02/18/18) Tonsillectomy Family History Father Diabetes Lung cancer Social History Smoking/Tobacco Use Status: Former Tobacco Use Smoking risk assessment performed?: Yes Alcohol Intake: current Alcohol Intake frequency: holidays/special occasions only Drug use: Socially Substance use type: marijuana Do you feel safe at home: Yes Do you feel safe in your relationship?: Yes Exam Const General: cooperative, no acute distress and not ill appearing Orientation: alert, awake and oriented x3 Resp Effort & Inspection: normal respiratory effort, able to speak in complete sentences and no respiratory distress Cardio Rate: regular rate Rhythm: regular rhythm Pulses: dorsalis pedis present Skin General skin exam: no rashes or lesions noted Neuro General: patient alert, patient awake, patient oriented x3, moves all extremities and no focal motor deficits Sensory Exam: no sensory deficits noted Extrem General: normal exam except as noted Right lower extremity: knee Details: tenderness Location: of the medial joint line, swelling Location: of the proximal tibia Details: medially, normal ROM and knee ligament exam abnormal Details: valgus stress test normal Details: laxity noted, varus stress test normal Details: pain noted (To medial aspect) and pain with axial loading; no abrasions, no lacerations, no ecchymosis, no crepitus and no deformity Course Vital Signs Vital signs: Vital Signs Temperature 36.4 C L 12/08/21 14:58 Pulse 85 12/08/21 14:58 Respiratory Rate 16 12/08/21 14:58 Blood Pressure 121/79 12/08/21 14:58 Pulse Oximetry 96 12/08/21 14:58 Temperature 36.4 C L 12/08/21 14:58 Pulse 85 12/08/21 14:58 Respiratory Rate 16 12/08/21 14:58 Blood Pressure 121/79 12/08/21 14:58 Pulse Oximetry 96 12/08/21 14:58 Oxygen Delivery Method Room Air 12/08/21 14:58 Oxygen Flow Rate 0 12/08/21 14:58
--- NOTE | 2021-12-08 15:23 | DI.RAD_ITS ---
Exam(s) XR KNEE RT 3V AP,LAT,CHRIS EXAM: XR KNEE RT 3V AP,LAT,CHRIS CLINICAL HISTORY: medial kne pain after twist injury. TECHNIQUE: 2D digital imaging was performed. Three views. COMPARISON: CR RIGHT TIB/FIB from 12/01/2016 MR MRI R LOWER JOINT WO CONT from 02/24/2017 FINDINGS: BONES: No acute fracture is present. No bony destructive lesion is seen. JOINTS: The knee is normally aligned. No joint effusion is seen. A small circumscribed bony density is seen projecting above the tibial spines, nonacute. This is seen on prior exam. SOFT TISSUE: Normal. IMPRESSION: No acute abnormality.. DATA REPOSITORY: RADIATION DOSE DELIVERED:
--- NOTE | 2021-12-08 15:49 | DI.VRAD_ITS ---
PROCEDURE INFORMATION: Exam: XR Right Knee Exam date and time: 12/08/2021 3:17 PM Age: 36 years old Clinical indication: Injury or trauma; Fall; Sprain or strain; Patella or knee; Right; Patient HX: Medial knee pain after twisting injury. TECHNIQUE: Imaging protocol: XR Right knee. Views: 3 views. COMPARISON: MRI R LOWER JOINT WO CONT 02/24/2017 3:51 PM FINDINGS: Bones/joints: Normal. Soft tissues: Normal. Other findings: Small effusion. IMPRESSION: Small knee joint effusion. Right knee otherwise normal. Dictated and Authenticated by: Mary Macedo MD. Ordering:OPHELIA Dunham MD
--- NOTE | 2021-12-08 15:57 | NUR.NOTE ---
Nursing Note: referred to ortho for right knne injury, meniscus vs ligament
[2021-12-08 16:03] VITALS: PULSE 82; RESP 16; O2SAT 99
== END 2021-12-08 16:05 | disposition home or self-care (01) ==
PROVIDERS: Emergency Provider Nurse Practitioner Family; PCP Nurse Practitioner Family
DX: S89.81XA Other specified injuries of right lower leg, initial encounter (principal); X50.1XXA Overexertion from prolonged static or awkward postures, initial encounter
CPT/HCPCS: 29505; 73562; 99283

== ENCOUNTER 2022-01-31 14:39 | Outpatient (REF) | payer MEDICAID, SELFPAY ==
[2022-01-31 19:14] LABS: Calculated LDL 91 mg/dL (<100); Cholesterol 145 mg/dL (<200); HDL Cholesterol 41 mg/dL (40-60); Triglyceride 67 mg/dL (<150)
== END 2022-01-31 14:40 | disposition home or self-care (01) ==
LOC: NCHCN 14:39
PROVIDERS: PCP Physician Assistant Medical; Visit Provider Nurse Practitioner Family
DX: E78.5 Hyperlipidemia, unspecified (principal); E11.9 Type 2 diabetes mellitus without complications
CPT/HCPCS: 80061; 83036

== ENCOUNTER → 2022-05-09 00:10 | Outpatient (CLI) | payer MEDICAID, SELFPAY ==
--- NOTE | 2022-05-09 06:45 | DI.MRI_ITS ---
Exam(s) MR LOWER JOINT RT WO EXAM: MR LOWER JOINT RT WO CLINICAL HISTORY: PAIN,rt acl tear, internal derangement rt knee, m23.91,s83.511a TECHNIQUE: Multiplanar multisequence MRI of the knee was performed. COMPARISON: MR MRI R LOWER JOINT WO CONT from 02/24/2017 FINDINGS: EFFUSION: There is a moderate size right knee joint effusion. There is no King cyst in the poplitea l fossa. MARROW:There is no evidence of fracture, bone contusion, nor osteochondral defects.. There are no si gnificant osseous lesions. PATELLOFEMORAL COMPARTMENT: The quadriceps tendon is intact. The patellar ligament is intact. There is no significant thinning of the retropatellar cartilage. No evidence of fissure nor signific ant chondral defect. No osteochondral defect at this level.There is no intraosseous signal to sugges t recent patellar dislocation. There are no patellar retinacular tears. CRUCIATE LIGAMENTS: The anterior cruciate ligament is somewhat attenuated, reflecting the significant tear in the structure that was evident on the prior January 2017 study.The posterior cruciate ligamen t is intact. MEDIAL COMPARTMENT/MEDIAL MENISCUS: There appears to be an element of tearing in the inner 3rd of the posterior horn of the medial meniscus. There is a 4 x 3 millimeter ossified density in the intercon dylar notch located just anterior to the root of the medial meniscus 1 the anterior horn also exhibit s tearing.. Mild cartilage narrowing over the medial condyle. No evidence of osteochondral defect. No prominent subarticular edema. No osteophytes. MEDIAL COLLATERAL LIGAMENT: Intact LATERAL COMPARTMENT/LATERAL MENISCUS: There is no evidence of lateral meniscal tear.There are no filippo dral defects, osteochondral defects, subarticular marrow edema, nor osteophytes evident. ILIOTIBIAL BAND: Intact LATERAL COLLATERAL LIGAMENT COMPLEX: The fibular collateral ligament is intact. The biceps femoris t endon is intact.Popliteus muscle and tendon are intact. IMPRESSION: 1. When compared to the prior MRI of 2016 the previously torn ACL appears thinner than typical of the present study but has the appearance of the [place] ACL and does not exhibit abnormal high signal. M ost probably represents healing of a previously incomplete ACL tear. 2. There are tears in both anterior posterior horns of the medial meniscus. 3. Moderate-sized joint effusion. No King cyst. DATA REPOSITORY:
== END ==
PROVIDERS: PCP Physician Assistant Medical; Visit Provider Student in an Organized Health Care Education/Training Program
DX: M25.461 Effusion, right knee (principal); S83.511A Sprain of anterior cruciate ligament of right knee, initial encounter
CPT/HCPCS: 73721

== ENCOUNTER 2022-12-29 01:47 | Outpatient (CLI) | payer MEDICAID, SELFPAY ==
--- NOTE | 2022-12-29 | DI.CT_ITS ---
Exam(s) CT FACIAL W EXAM: CT FACIAL W CLINICAL HISTORY: FACIAL SWELLING, R22.0, PAIN, RT NOSE AND MAXILLARY, S/P KICKED IN FACE,. TECHNIQUE: Imaging Protocol: Axial computed tomography images with coronal and sagittal reformatted images were created and reviewed CONTRAST MATERIAL: Intravenous: Omnipaque 350 Contrast volume:100 cc COMPARISON: CT CT SINUS WO from 10/11/2021 FINDINGS: Facial Bones: No definite fracture is noted in facial bones. Sinuses and Mastoids: Unremarkable. Globes, extraocular muscles, optic nerves and retrobulbar fat: Normal. Upper aerodigestive tract: Normal. Mandible and bilateral temporomandibular joints: Normal. Soft tissues: Normal. IMPRESSION: No evidence of fracture/dislocation in facial bones. RADIATION DOSE DELIVERED: 997.49mGy.cm Total DLP 997.49mGy.cm Total DLP 997.49mGy.cm Total DLP 997.49mGy.cm Total DLP DATA REPOSITORY: All CT scans at this facility are submitted to the National Radiology Data Registry (NRDR) Dose Index Registry (DIR) with the [employer] (ACR). RADIATION OPTIMIZATION: All CT scans at this facility use at least one of these dose optimization te chniques: automated exposure control; mA and/or kV adjustment per patient size (includes targeted exa ms where dose is matched to clinical indication); or iterative reconstruction.
[2022-12-29 14:25] LABS: Anion Gap 8.1 mmol/L (3-11); BUN 13 mg/dL (7-18); CO2 26.9 mmol/L (21.0-32.0); Calcium 9.1 mg/dL (8.5-10.1); Chloride 104 mmol/L (98-107); Estimated GFR 99.41 (mL/min/1.73m2); Glucose 89 mg/dL (74-106); Potassium 3.7 mmol/L (3.5-5.1); Sodium 139 mmol/L (136-145)
[2022-12-29] MEDS: Omnipaque 350 MG/ML 500 ML BTL-Imaging package IJ (15:37)
[2022-12-29] MEDS: Normal Saline - Diluent 50 ML VIAL IJ (15:38)
== END 2022-12-29 02:07 ==
LOC: DI 01:47
PROVIDERS: PCP Physician Assistant Medical; Visit Provider Physician Assistant Medical
DX: R22.0 Localized swelling, mass and lump, head (principal); S09.93XA Unspecified injury of face, initial encounter; X58.XXXA Exposure to other specified factors, initial encounter
CPT/HCPCS: 80048; 70487

== ENCOUNTER 2023-01-01 18:29 | Emergency (ER) | payer MEDICAID, SELFPAY ==
[2023-01-01 18:31] VITALS: BP 126/80; PULSE 64; RESP 18; TEMP 37.2; O2SAT 98
--- NOTE | 2023-01-01 19:16 | ED.GENADUL_ITS ---
Discharge Plan Disposition Patient Disposition: Home Condition: Stable Discharge Details Clinical Impression: Cellulitis Primary Care Provider: Lloyd Leslie ED Provider: Guillermo Nieves Home Meds and New Rx's Prescriptions: New amoxicillin 875 mg tablet 875 mg PO BID 5 Days Qty: 10 0RF doxycycline hyclate 100 mg capsule 100 mg PO BID 5 Days Qty: 10 0RF No Action albuterol sulfate [ProAir HFA] 90 mcg/actuation HFA aerosol inhaler 2 puff inhalation Q6H PRN nystatin 100,000 unit/gram cream 1 applic topical BID selenium sulfide 2.5 % lotion 1 applic topical QWEEK metformin 500 mg tablet 500 mg PO DAILY rosuvastatin 10 mg tablet 10 mg PO DAILY omeprazole 20 MG capsule,delayed release(DR/EC) 40 mg PO DAILY dicyclomine 10 MG capsule 10 mg PO BID PRN PRN amoxicillin-pot clavulanate 875-125 mg tablet Discharge Instructions Instructions: Cellulitis (ED) Additional Instructions: Please keep wound clean and dry Medical Decision Making 37-year-old male history of diabetes presents with wound to left calf, believes he had a bug bite, area of induration erythema to left calf approximately 3 cm diameter, no lymphangitic streaking no crepitus no fluctuance no purulence. Likely localized cellulitis. Given history of diabetes and community prevalence of MRSA will cover with amoxicillin and doxycycline. Home care instructions and strict return precautions for any worsening symptoms HPI General Date/Time Provider Initiated Documentation: 01/01/23 18:37 . HPI Narrative: 37-year-old male history of diabetes presents with wound to left calf, believes he may have had a bug bite in this region noticed redness to the area. No fevers chills sweats or other systemic signs of illness Related Data Home Medications Medication Instructions Recorded Confirmed omeprazole 20 mg capsule,delayed 40 mg PO DAILY 10/28/15 01/01/23 release dicyclomine 10 mg capsule 10 mg PO BID PRN PRN 04/29/16 01/01/23 albuterol sulfate 90 mcg/actuation 2 puff inhalation Q6H PRN 08/01/21 01/01/23 aerosol inhaler (ProAir HFA) nystatin 100,000 unit/gram topical 1 applic topical BID 08/01/21 01/01/23 cream selenium sulfide 2.5 % lotion 1 applic topical QWEEK 08/01/21 01/01/23 metformin 500 mg tablet 500 mg PO DAILY 12/25/21 01/01/23 rosuvastatin 10 mg tablet 10 mg PO DAILY 12/25/21 01/01/23 amoxicillin 875 mg tablet 875 mg PO BID 5 days #10 tabs 01/01/23 amoxicillin 875 mg-potassium tab 01/01/23 01/01/23 clavulanate 125 mg tablet doxycycline hyclate 100 mg capsule 100 mg PO BID 5 days #10 caps 01/01/23 Previous Rx's Medication Instructions Recorded amoxicillin 875 mg tablet 875 mg PO BID 5 days #10 tabs 01/01/23 doxycycline hyclate 100 mg capsule 100 mg PO BID 5 days #10 caps 01/01/23 Allergies Allergy/AdvReac Type Severity Reaction Status Date / Time sulfamethoxazole Allergy Intermediate Verified 01/01/23 18:34 [From Bactrim] trimethoprim [From Bactrim] Allergy Intermediate Verified 01/01/23 18:34 clindamycin Allergy Unknown Verified 01/01/23 18:34 General Stated Complaint: [facility] SANDRA: 4 Review of Systems Narrative: Review of Systems Constitutional: negative Eyes: negative ENT: negative Cardiovascular: negative Respiratory: negative Gastrointestinal: negative : negative Musculoskeletal: negative Skin: Skin lesion Neurologic: negative Psych: negative PFSH All Active Problems (Updated 01/01/23 @ 19:19 by Guillermo Nieves MD) Cellulitis (Acute) Right ACL tear (Acute 03/30/17) Weight gain (Acute) Snoring (Acute) Chronic headaches (Acute) Chronic sinusitis (Acute) Cough (Acute) Congested nose (Acute) Sinus pressure (Acute) Medical History Abnormal weight gain Anemia Balanitis Cervical lymphadenopathy Chronic anemia COVID-19 Depressed Diabetes mellitus Ganglion, right wrist Generalized abdominal pain History of infectious disease of central nervous system Hyperlipidemia Impaired glucose tolerance Irritable bowel syndrome with diarrhea Localized enlarged lymph nodes Obesity Pharyngitis Pityriasis versicolor Rhinosinusitis Surgical History Colonoscopy - IV Sedation Excision Ganglion Cyst right hand (02/18/18) Tonsillectomy Family History Father Diabetes Lung cancer Social History Smoking/Tobacco Use Status: Former Tobacco Use Smoking risk assessment performed?: Yes Alcohol Intake: current Alcohol Intake frequency: holidays/special occasions o nly Drug use: Socially Substance use type: marijuana Current gender identity: male Do you feel safe at home: Yes Do you feel safe in your relationship?: Yes Exam Narrative Exam Narrative: Physical Examination General: alert, awake, cooperative, resting comfortably, no acute distress Skin: 3 cm diameter region of circumscribed erythema and induration to left calf, central shallow ulceration, no fluctuance or purulence no lymphangitic streaking no crepitus Course Vital Signs Vital signs: Vital Signs Temperature 37.2 C 01/01/23 18:31 Pulse 64 01/01/23 18:31 Respiratory Rate 18 01/01/23 18:31 Blood Pressure 126/80 01/01/23 18:31 Pulse Oximetry 98 01/01/23 18:31 Temperature 37.2 C 01/01/23 18:31 Temperature Source Skin 01/01/23 18:31 Pulse 64 01/01/23 18:31 Respiratory Rate 18 01/01/23 18:31 Respiratory Effort Normal 01/01/23 19:01 Blood Pressure 126/80 01/01/23 18:31 Pulse Oximetry 98 01/01/23 18:31 Oxygen Delivery Method Room Air 01/01/23 18:31 Oxygen Flow Rate 0 01/01/23 18:31 Pain Level 1 01/01/23 18:31
[2023-01-01] MEDS: Amoxicillin 500 MG CAP PO (19:25)
[2023-01-01] MEDS: Doxycycline Hyclate 100 MG CAP PO (19:25)
== END 2023-01-01 19:30 | disposition home or self-care (01) ==
PROVIDERS: Emergency Provider Emergency Medicine; PCP Physician Assistant Medical
DX: L03.116 Cellulitis of left lower limb (principal)
CPT/HCPCS: 99283; 99284

== ENCOUNTER 2023-03-12 16:55 | Outpatient (REF) | payer MEDICAID, SELFPAY ==
[2023-03-12 16:11] LABS: Abs Immature Grans 0.02 10^3/uL (0.0-0.06); Absolute Basophil Count 0.06 10^3/uL (0.0-0.2); Absolute Eosinophil Count 0.21 10^3/uL (0.0-0.7); Absolute Lymphocyte Count 2.28 10^3/uL (1.2-3.4); Absolute Monocyte Count 0.45 10^3/uL (0.1-0.8); Absolute Neutrophil Count 3.16 10^3/uL (1.2-6.7); Eosinophils % 3.4; HCT 39.6 % (40.0-50.0); HGB 13.7 g/dL (13.5-17.5); Immature Grans % 0.3; Lymphocytes % 36.9; MCH 30.6 pg (27.0-33.0); MCHC 34.6 % (32.0-36.0); MCV 88 fL (80-95); MPV 12.2 fL (8.0-11.0); Monocytes % 7.3; Neutrophils % 51.1; Platelet Count 231 10^3/uL (130-400); RBC 4.48 10^6/uL (4.36-5.78); RDW 12.6 % (11.8-14.1); RDW-SD 41.1 fL; WBC 6.18 10^3/uL (4.4-10.8)
[2023-03-12 16:23] LABS: ALT 36 U/L (16-63); AST 19 U/L (15-37); Albumin 4.1 g/dL (3.4-5.0); Alkaline Phosphatase 44 U/L (46-116); Anion Gap 9.3 mmol/L (3-11); BUN 15 mg/dL (7-18); Bilirubin, Total 0.5 mg/dL (0.2-1.0); CO2 22.7 mmol/L (21.0-32.0); CREATININE 0.9 mg/dL (0.70-1.30); Calculated LDL 99 mg/dL (<100); Chloride 103 mmol/L (98-107); Cholesterol 160 mg/dL (<200); Estimated GFR 112.81 (mL/min/1.73m2); Glucose 104 mg/dL (74-106); HDL Cholesterol 41 mg/dL (40-60); Potassium 4.2 mmol/L (3.5-5.1); Sodium 135 mmol/L (136-145); Total Protein 7.4 g/dL (6.4-8.2); Triglyceride 103 mg/dL (<150)
[2023-03-12 16:43] LABS: Vitamin D 25 Total 14.5 ng/mL (30-100)
== END 2023-03-12 16:56 | disposition home or self-care (01) ==
LOC: NCHCN 16:55
PROVIDERS: PCP Physician Assistant Medical; Visit Provider Nurse Practitioner Family
DX: D64.9 Anemia, unspecified (principal); E78.5 Hyperlipidemia, unspecified; E11.9 Type 2 diabetes mellitus without complications; E55.9 Vitamin D deficiency, unspecified
CPT/HCPCS: 80053; 80061; 82306; 85025

== ENCOUNTER 2023-10-29 16:48 | Outpatient (REF) | payer OTHER, SELFPAY ==
[2023-10-29 19:58] LABS: Hemoglobin A1C 5.9 % (<5.7)
[2023-10-29 20:10] LABS: Vitamin B12 291 pg/mL (193-986)
[2023-10-29 21:35] LABS: Vitamin D 25 Total 18.4 ng/mL (30-100)
== END 2023-10-29 16:49 | disposition home or self-care (01) ==
LOC: NCHCN 16:48
PROVIDERS: PCP Physician Assistant Medical; Visit Provider Nurse Practitioner Family
DX: E11.9 Type 2 diabetes mellitus without complications (principal); E55.9 Vitamin D deficiency, unspecified; E53.8 Deficiency of other specified B group vitamins; E78.5 Hyperlipidemia, unspecified; K21.9 Gastro-esophageal reflux disease without esophagitis
CPT/HCPCS: 80053; 82306; 82043; 82570; 82607; 83036; 83735

== ENCOUNTER 2024-06-13 20:26 | Outpatient (REF) | payer OTHER, SELFPAY ==
--- OUTSIDE RECORDS SUMMARY | 2024-06-13 20:27 | XMS_ITS | Referral Summary ---
Author Organization [facility] Address [address] [place] [address] Care Team Providers Care Book Sewer Name Role Phone José Manuel Omalley MD Primary Care Provider [phone] Social History Tobacco Use Types Packs/Day Years Used Date Smoking Tobacco: Never Assessed Interpersonal Safety Answer Date Record ed Physically Hurt Never 01/29/2020 Verbally Threaten Not on file 01/29/2020 Sex and Gender Information Value Date Recorded Sex Assigned at Not on file Legal Sex Male 17:54 EST Gender Identity Not on file Sexual Orientation Not on file Plan of Treatment Not on file Insurance MEDICAID [place] Care Teams Book Sewer Relationship Specialty Start Date End Date José Manuel Omalley MD [address] [place] [address] [place] [phone] PCP - General 09/11/14
--- OUTSIDE RECORDS SUMMARY | 2024-06-13 20:27 | XMS_ITS | Encounter Summary ---
Author Organization [facility] Address [facility] [place] [address] Care Team Providers Care Facility Manager Histology Name Role Phone Joe Johansen MD Primary Care Provider [phone] Encounter Details Date Type Department Care Team (Late st Contact Info) Description 08/22/2015 Orders Only Gastroenterology at [facility] [place] [address] Dara Rowland, [facility] [place] [address] Reflux esophagitis Social History Tobacco Use Types Packs/Day Years Used Date Smoking Tobacco: Smoker, Current Status Unknown Cigarettes Smokeless Tobacco: Never Comments:Smokes 2-3 times pe r month Alcohol Use Standard Drinks/Week Comments Yes 0 (1 standard drink = 0.6 oz pur e alcohol) Occasional Sex and Gender Information Value Date Recorded Sex Assigned at Not on file Gender Identity Not on file Sexual Orientation Not on file documented as of this encounter Plan of Treatment Not on file documented as of this encounter Visit Diagnoses Diagnosis Reflux esophagitis documented in this encounter Care Teams Facility Manager Histology Relationship Specialty Start Date End Date Joe Johansen MD [address] [place] [phone] PCP - General 01/26/14 02/26/23 documented as of this encounter
--- OUTSIDE RECORDS SUMMARY | 2024-06-13 20:27 | XMS_ITS | Encounter Summary ---
Author Organization [facility] Address [facility] [place] [address] Care Team Providers Care President + Publisher Name Role Phone Joe Johansen MD Primary Care Provider Reason for Visit * Reason Onset Date Comments Medication Refill 04/21/2017 Encounter Details Date Type Department Care Team (Late st Contact Info) Description 04/21/2017 Refill [place] [address] Mark Sarabia APRN [facility] [place] [address] Social History Tobacco Use Types Packs/Day Years Used Date Smoking Tobacco: Former Cigarettes Smokeless Tobacco: Never Comments:Smokes 2-3 times [...] documented as of this encounter Visit Diagnoses Not on filedocumented in this encounter Care Teams President + Publisher Relationship Specialty Start Date End Date Joe Johansen MD [address] [place] [phone] PCP - General 01/26/14 02/26/23 documented as of this encounter
--- OUTSIDE RECORDS SUMMARY | 2024-06-13 20:27 | XMS_ITS | Encounter Summary ---
Author Organization [facility] Address [facility] [place] [address] Care Team Providers Care Nightman Name Role Phone Joe Johansen MD Primary Care Provider [phone] Reason for Visit * Reason Comments Follow-up Encounter Details Date Type Department Care Team (Latest Contact Info) Description 04/08/2016 11:00 AM EDT Office [place] [address] Mark Sarabia APRN [facility] [place] [address] Gastroesophageal reflux disease with esophagitis Social History Tobacco Use Types Packs/Day [...] on file documented as of this encounter Last Filed Vital Signs Vital Sign Reading Time Taken Comments Blood Pressure 123/73 04/08/2016 10:50 AM EDT Pulse 84 04/08/2016 10:50 AM EDT Temperature - - Respiratory Rate - - Oxygen Saturation - - Inhaled Oxygen Concentration - - Weight 145.6 kg (321 lb) 04/08/2016 10:50 AM EDT Height 185.4 cm (6' 1) 04/08/2016 10:50 AM EDT Body Mass Index 42.35 04/08/2016 10:50 AM EDT documented in this encounter Progress Notes * Mark Sarabia RN - 04/08/2016 11:00 AM EDT _26___minutes of this_32___-minute visit were spent in face to face discussion and/or counseling the patient, regarding symptoms and treatment options as detailed below. Pt is here for f/u regarding progress with medical regimen. Pt is taking Omeprazole 20mg qd and bentyl 10mg qd. This regimen overall is working well. Reflux has improved. Intermittent breakthrough, food dependent. Not awakening during the night withsx. Continues with food sticking in the lower esophagus. This has improved but continues. No regurgitation of the bolus. No pre/post-prandial sx. No significant gas or bloat. Weight stable. Reviewed diet. Trying to wean soda. 3-4 cans of soda per day. Prior it was 7-8 cans per day. Decreased portions. Has not tried lowfodmap diet. Eating was stimulating mid to lower abdominal cramping and feeling like he had to go to the bathroom. Would have frequent stools post-prandially. Had urgency. These lower gi sx have improved but still some residual. No going twice in the am and 1-2 in the evening. It was at least double that prior to tx. No blood in stool. Not taking laxatives. Egd: LA Grade A (one or more mucosal breaks less than 5 ?mm, not extending between tops of 2 mucosal folds) ?esophagitis with no bleeding was found. There was a ?single linear erosion ?The entire examined stomach was normal. Biopsies were ?taken with a cold forceps for histology. ?Patchy mildly erythematous mucosa without active ?bleeding and with no stigmata of bleeding was found ?in the second part of the duodenum. Biopsies for ?histology were taken with a cold forceps for for ?evaluation of celiac disease. ? Impression: ?- LA Grade A reflux esophagitis. ?- Normal stomach. Biopsied. ?- Erythematous duodenopathy. Biopsied. Recommendation: ?- Await pathology results. ? [place]: The colon mucosa (entire examined portion) appeared ?normal. Biopsies were taken with a cold forceps for ?histology. ?The terminal ileum appeared normal. ?A 4 mm polyp was found in the sigmoid colon. The ?polyp was sessile. The polyp was removed with a cold ?snare. Resection and retrieval were complete. ?Internal hemorrhoids were found during retroflexion. ?The hemorrhoids were small. ? Impression: ?- The entire examined colon is ?normal. Biopsied. ?- The examined portion of the ileum ?was normal. ?- One 4 mm polyp in the sigmoid ?colon. Resected and retrieved. ?- Internal hemorrhoids. Recommendation: ?- Await pathology results. Bx: Duodenum, biopsy: Duodenal mucosa within normal limits, including preserved villous architecture. B - Colon, biopsy: Colonic mucosa within normal limits. C - Stomach, biopsy: Gastric antral mucosa within normal limits. No H. pylori-like microorganism is seen. D - Sigmoid colon, polypectomy: Benign mucosal prolapse polyp. Plan: 1. Gerd/dyspepsia/dysphagia: Omeprazole 20mg bid or 40mg qd. If dysphagia continues consider hrem. Continue to encourage to decrease soda consumption. 2. IBS: bentyl 10mg bid to tid. 3. We agreed pt will contact via my regarding progress. documented in this encounter Plan of Treatment Not on file documented as of this encounter Visit Diagnoses Diagnosis Gastroesophageal reflux disease with esophagitis documented in this encounter Care Teams Nightman Relationship Specialty Start Date End Date Joe Johansen MD [address] [place] [phone] PCP - General 01/26/14 02/26/23 documented as of this encounter
--- OUTSIDE RECORDS SUMMARY | 2024-06-13 20:27 | XMS_ITS | Encounter Summary ---
Author Organization [facility] Address [address] [place] [address] Care Team Providers Care Scrap Hoist Operator Name Role Phone José Manuel Omalley MD Primary Care Provider [phone] Encounter Details Date Type Department Care Team (Late st Contact Info) Description 02/18/2018 Results Only [facility] [phone] Ruba Chinchilla MD [address] [facility] [place] [address] Social History Tobacco Use Types Packs/Day Years Used Date Smoking Tobacco: Never Assessed Sex and Gender Information Value Date Recorded Sex Assigned at Not on file Legal Sex Male 17:54 EST Gender Identity Not on file Sexual Orientation Not on file documented as of this encounter Plan of Treatment Not on file documented as of this encounter Procedures Procedure Name Priority Date/Time Associated Diagnosis Comments SURGICAL PATHOLOGY Routine 02/18/2018 22 :10 EDT documented in this encounter Results * SURGICAL PATHOLOGY (02/18/2018 22:10 EDT) Pathology Report: SURGICAL PATHOLOGY REPORT Reports generated via electronic interface contain original data; however they are lacking the format of the original report. Caution should be taken when reading/interpret ing unformatted reports. Name: ? JAK GEORGES ? Accession #: ? [id number] ? : ? 1985 (Age: 32) ??M ? Collect Date: ? 02/18/2018 ? Location: ? [facility] ? Receive Date: ? 02/18/2018 ? Provider: RUBA CHINCHILLA MD Copy to: MAKENNA IYER MD ? Final Pathologic Diagnosis: SOFT TISSUE, RIGHT DORSAL WRIST, CYST, EXCISION: - Features consistent with ganglion cyst. Document reviewed and electronically signed by: GLADYS ACOSTA MD Report ??Date: 02/22/2018 17:26 By the signature above, the attending physician certifies that he/she has personally conducted a gross and/or microscopic examination of the described specimens and rendered or confirmed the above diagnosis. Specimen(s) Received: Right wrist dorsum ganglion cyst Clinical History: Right wrist dorsum ganglion cyst Gross Description: ? Received in formalin labelled with proper patient identification (initials T, H) and right wrist dorsum ganglion cyst is a single piece of glistening white fibro-membranous tissue (2.0 x 1.1 x 0.8 cm). ??The cut surface is smooth translucent tamayo-white, and the fluid within is viscous and clear. The cyst wall is less than 0.1 cm in thickness. The specimen is entirely submitted as 1. Dr. Acuña 02/19/2018 2:51 PM End of Report [facility] 02/18/2018 22:1 0 EDT 02/18/2018 22:10 EDT us Ruba Chinchilla MD PATHOLOGY ORDERABLES Fin al Result [facility] [address] [place] [address] documented in this encounter Visit Diagnoses Not on filedocumented in this encounter Care Teams Scrap Hoist Operator Relationship Specialty Start Date End Date José Manuel Omalley MD [address] [place] [address] [place] [phone] PCP - General 09/11/14 documented as of this encounter
--- OUTSIDE RECORDS SUMMARY | 2024-06-13 20:27 | XMS_ITS | Encounter Summary ---
Author Organization [facility] Address [facility] [place] [address] Care Team Providers Care Mineralogy Teacher Name Role Phone Joe Johansen MD Primary Care Provider Encounter Details Date Type Department Care Team (Late st Contact Info) Description 08/16/2014 Orders [place] [address] Charles Gutierrez DPM [facility] [place] [address] Heel pain, left Social History Tobacco Use Types Packs/Day Years Used Date Smoking Tobacco: Never Assessed Sex and Gender Information Value Date Recorded Sex Assigned at Not on file Gender Identity Not on file Sexual Orientation Not on file documented as of this encounter Plan of Treatment Not on file documented as of this encounter Visit Diagnoses Diagnosis Heel pain, left documented in this encounter Care Teams Mineralogy Teacher Relationship Specialty Start Date End Date Joe Johansen MD [address] [place] [phone] PCP - General 01/26/14 02/26/23 documented as of this encounter
--- OUTSIDE RECORDS SUMMARY | 2024-06-13 20:27 | XMS_ITS | Clinical Summary ---
Author Organization [facility] Address [address] [place] [address] Care Team Providers Care Hazmat Tanker Driver Name Role Phone José Manuel Omalley MD Primary Care Provider [phone] Social History Tobacco Use Types Packs/Day Years Used Date Smoking Tobacco: Never Assessed Interpersonal Safety Answer Date Record ed Physically Hurt Never 01/29/2020 Verbally Threaten Not on file 01/29/2020 Sex and Gender Information Value Date Recorded Sex Assigned at Not on file Legal Sex Male 17:54 EST Gender Identity Not on file Sexual Orientation Not on file Plan of Treatment Health Maintenance Due Date Last Done Comments Hepatitis C Screen 1985 Hepatitis B Vaccine (1 of 3 - 19+ 3-dose series) 07/17 COVID-19 Vaccine (2023- season) 2024 Insurance MEDICAID [place] Care Teams Hazmat Tanker Driver Relationship Specialty Start Date End Date José Manuel Omalley MD [address] [place] [address] [place] [phone] PCP - General 09/11/14
--- OUTSIDE RECORDS SUMMARY | 2024-06-13 20:27 | XMS_ITS | Encounter Summary ---
Author Organization [facility] Address [address] [place] [address] Care Team Providers Care Strategic Solutions Consultant Name Role Phone José Manuel Omalley MD Primary Care Provider [phone] Encounter Details Date Type Department Care Team (Late st Contact Info) Description 03/28/2021 Lab Requisition [facility] Pathology & Laboratory Medicine - [facility] [address] [place], [place] [id number] Outr Resulting Lab, Provider Social History Tobacco Use Types Packs/Day Years [...] Procedure Name Priority Date/Time Associated Diagnosis Comments ZZCOVID-19 TEST [facility] PCR Today 03/27/2021 19:42 EDT COVID-19 TESTING Routine 03/27/2021 19:4 2 EDT documented in this encounter Results * COVID-19 TEST [facility] PCR (03/27/2021 19:42 EDT) Swab ENTIRE NASOPHARYNX / Unknown 03/27/2021 19:42 EDT 03/28/2021 15:52 EDT us Provider Outr Resulting Lab MICROBIOLOGY - GENER AL ORDERABLES Final Result Performing Organization Address [facility] de Phone Number [facility] [address] [place] [address] * (ABNORMAL) COVID-19 TESTING (03/27/2021 19:42 EDT) COVID-19 rt-PCR Result Positive( AA) Negative 03/29/2021 10:[address] [facility] Comment: This test has not been FDA cleared or approved. This test has been authorized by FDA under an EUA for use by authorized laboratories. This test has been authorized only for detection of nucleic acid from 2019-nCoV, not for any other viruses or pathogens. This test is only authorized for the duration of the declaration that circumstances exist justifying the authorization of emergency use of in vitro diagnostic tests for detection and/or diagnosis of 2019-nCoV under section 564(b)(1) of Act, 21 U.S.C ?? 360bbb-3(b) (1), unless the authorization is terminated or revoked sooner. Testing was performed using the jose SARS-CoV-2 assay ([id number] on the Jose [facility]00 System Performing Lab [facility] [address] [facility] 03/29/2021 10:[address] [facility] Swab 03/27/2021 19:4 2 EDT 03/28/2021 15:52 EDT us Provider Outr Resulting Lab MICROBIOLOGY - GENER AL ORDERABLES Final Result Performing Organization Address [facility] de Phone Number [facility] [address] [place] [address] documented in this encounter Visit Diagnoses Not on filedocumented in this encounter Additional Health Concerns Infection Onset Date Last Indicated Resolved Time COVID-19 03/27/2021 03/27/2021 04/16/2021 22:1 5 EDT documented as of this encounter Care Teams Strategic Solutions Consultant Relationship Specialty Start Date End Date José Manuel Omalley MD [address] [place] [address] [place] [phone] PCP - General 09/11/14 documented as of this encounter
--- OUTSIDE RECORDS SUMMARY | 2024-06-13 20:27 | XMS_ITS | Encounter Summary ---
Author Organization [facility] [place] [address] Care Team Providers Care Last Picker Name Role Phone Joe Johansen MD Primary Care Provider [phone] Reason for Visit * Reason Onset Date Comments Referral 08/11/2014 Encounter Details Date Type Department Care Team (Late st Contact Info) Description 08/11/2014 [place] [phone] Johanna Keys Referral Social History Tobacco Use Types Packs/Day Years Used Date Smoking Tobacco: Never Assessed Sex and Gender Information Value Date Recorded Sex Assigned at Not on file Gender Identity Not on file Sexual Orientation Not on file documented as of this encounter Miscellaneous Notes * Telephone Encounter - Johanna Keys - 08/11/2014 8:38 AM EST Ask the patient to verify the following: Full Name: Jak Georges Jr. : 1985 Phone number: [phone] (home) Mailing address: [address] [place] [address] Age: 29 y.o. Appointment date: PUT REMINDER IN Appointment is with: / JAMILA Reason #1 Injury/Complaint: LEFT HEEL PAIN/ BUMP Date of injury/complaint: 3 MONTHS Is this a new injury? No Is this a 2nd opinion? No Appointment type: 18-100 Adult - Not sports related Is this Workers Comp? No How long have you had these symptoms? 3 months Records Retrieval Most recent physical exam: No X-rays: No MRI: No CT Scan: No Physical therapy: No Injection: No Other diagnostic studies: No Other therapies: No Other specialist(s): No If 2nd (+) opinion get info on previous: No Have you had any surgeries for this issue? No Did surgery include placement of implant/hardware or fixation of any kind? No Do you use any type of orthotics? No Additional injuries: Advanced Directive Do you have an Advanced Directive on file: No - Please bring a copy to your next appointment. Advance Directive pilot highway patrol: N/A MyDH Do you have a [facility] account? No - Patient Declined documented in this encounter Plan of Treatment Not on file documented as of this encounter Visit Diagnoses Not on filedocumented in this encounter Care Teams Last Picker Relationship Specialty Start Date End Date Joe Johansen MD [address] [place] [phone] PCP - General 01/26/14 02/26/23 documented as of this encounter
--- OUTSIDE RECORDS SUMMARY | 2024-06-13 20:27 | XMS_ITS | Encounter Summary ---
Author Organization [facility] Address [address] [place] [address] Care Team Providers Care Commercial Artist Name Role Phone José Manuel Omalley MD Primary Care Provider [phone] Encounter Details Date Type Department Care Team (Latest Contact Info) Description 09/11/2014 15:30 EDT - 09/11/2014 23:59 EDT Hospital Encounter [address] [address] Unknown, Provider, MD Discharge Disposition: Home or Self Care Social History Tobacco Use Types Packs/Day Years Used Date Smoking Tobacco: Never Assessed Sex and Gender Information Value Date Recorded Sex Assigned at Not on file Legal Sex Male 17:54 EST Gender Identity Not on file Sexual Orientation Not on file documented as of this encounter Discharge Disposition Disposition Code Departure Means Destination Home or Self [facility] documented in this encounter Plan of Treatment Not on file documented as of this encounter Visit Diagnoses Not on filedocumented in this encounter Care Teams Commercial Artist Relationship Specialty Start Date End Date José Manuel Omalley MD [address] [place] [address] [place] [address] PCP - General 09/11/14 documented as of this encounter
--- OUTSIDE RECORDS SUMMARY | 2024-06-13 20:27 | XMS_ITS | Encounter Summary ---
Author Organization [facility] Address [facility] [place] [address] Care Team Providers Care Water Treatment Plant Supervisor Name Role Phone Joe Johansen MD Primary Care Provider [phone] Reason for Visit * Auth/Cert - Closed Specialty Diagnoses / Procedures Referred By Contac t Referred To Contact Diagnoses Altered bowel habits, generalized abdomeninal pain, BRB{R. r/o IBD, pls obtain random colonic bx Procedures PRO COLONOSCOPY, DIAGNOSTIC PRO UPPER GI ENDOSCOPY, DIAGNOSTIC COLONOSCOPY, DIAGNOSTIC EGD, UPPER GI ENDOSCOPY Referral ID Status Reason Start Date Expiration Date Visits Re quested Visits Authorized [id number] Closed 1 1 Encounter Details Date Type Department Care Team (Latest Contact Info) Description 08/21/2015 7:44 AM EST - 08/21/2015 10:17 AM EST Hospital En[place] [address] Freddie Oswald MD [facility] [place] [address] Discharge Disposition: Home Social History Tobacco Use Types Packs/Day Years [...] Sign Reading Time Taken Comments Blood Pressure 115/71 08/21/2015 9:25 AM EST Pulse 61 08/21/2015 9:25 AM EST Temperature 36.6 ??C (97.9 ??F) 08/21/2015 8:07 AM ES T Respiratory Rate 11 08/21/2015 9:25 AM EST Oxygen Saturation 97% 08/21/2015 9:25 AM EST Inhaled Oxygen Concentration - - Weight - - Height - - Body Mass Index - - documented in this encounter Discharge Instructions * Discharge Instructions* Elsa Herring RN - 08/21/2015 9:44 AM EST Upper GI Endoscopy and Colonoscopy (with biopsies and/or polyp removal) What to expect after the procedure You may feel a little more gassy or bloated than usual, this is normal. You should expect the return of normal bowel function in the next 2 to 3 days. Because some polyps were removed, you may see a little blood with the next few bowel movements, this should be a small amount ( less than a few tablespoons) and will resolve on its own. ACTIVITY Because of the sedation that you received your judgement and reaction time are effected ?? Go home and rest for the remainder for the day. You may resume your normal activities tomorrow. ?? Change from one position to the next slowly because you may lose your balance unexpectedly. ?? Be careful on stairs, as you may be unsteady. FOR THE NEXT 24 HRS ?? DO NOT DRIVE OR OPERATE MACHINERY ?? DO NOT DRINK ALCOHOLIC BEVERAGES ?? DO NOT SIGN LEGAL DOCUMENTS ?? If you are a smoker: DO NOT SMOKE WHILE YOU ARE ALONE When should you call for help? Call 911 anytime you think you may need emergency care. For example If you pass out (loss of consciousness) If you pass maroon or bloody stools If you have severe belly pain If you cough up blood. If you vomit blood or what looks like coffee grounds. Call your healthcare provider or seek immediate medical care if: Your stools are black or tar like Your stools have streaks of blood that is more pronounced with each BM You have belly pain, or your belly is swollen and firm You vomit or cannot keep fluids down. You have a fever You are very dizzy You have trouble swallowing. You are sick to your stomach Watch closely for changes in your health, and be sure to contact your doctor if you have any problems, such as Your throat still hurts after a day or two You do not get better as expected. Your Doctor will let you know when you will need your next colonoscopy. The results of your test and your risk for colorectal cancer will help your doctor decide how often you need to be checked. If you have questions or concerns, please call us Thursday-Thursday Clinic [phone] 8a-5p Same Day Endo [phone] 7a-8p Nights and weekends contact [phone] and ask to speak to the latin american studies professor sales service professional. Follow up care is a ramirez part of your treatment and safety. Be sure to make and go to all appointments, and call your doctor if you are having problems. Discharge instructions reviewed with patient who expresses understanding. Colonoscopy What to expect after the procedure You may feel a little more gassy or bloated than usual. This is normal. You should expect the return of normal bowel function in the 2 to 3 days. Activity Because of the sedation that you received your judgement and reaction time are effected ?? Go home and rest quietly for the remainder of the day. You may resume your normal activities tomorrow. ?? Change from one position to the next slowly. You may lose your balance unexpectedly ?? Be careful on stairs, as you may be unsteady on your feet FOR THE NEXT 24 HRS ?? DO NOT DRIVE OR OPERATE ANY MACHINERY ?? DO NOT DRINK ALCOHOLIC BEVERAGES ?? DO NOT SIGN LEGAL DOCUMENTS ?? If you are a smoker: DO NOT SMOKE WHILE YOU ARE ALONE Diet ?? Start by eating small portions of foods that ordinarily will not upset your stomach . Avoid gas producing foods for the next few days. ?? Be gentle with what you choose to start eating. ?? Drink plenty of fluids ( unless your doctor has told you not to). IV SITE-- slight redness, or tenderness is normal. You can use warm compresses if you become concerned. If the tenderness +/or redness increases or foul drainage and a red streak occurs, please contact your primary doctor immediately. When should you call for help? Call 101 anytime you think you may need emergency care. For example: If you pass out ( loss of consciousness) If you pass maroon or bloody stools If you have severe belly pain Call your doctor now or seek immediate medical care: If your stools are black and tarlike If your stools have streaks of blood, but you did not have a biopsy or any polyps removed If you have belly pain, or your belly is swollen and firm If you vomit If you have a fever If you are very dizzy Watch closely for changes in your health, and be sure to contact your doctor if you have any problems Your doctor will let you know when you will need your next colonoscopy. The results of your test and your risk for colorectal cancer will help your doctor decide how often you need to be checked. If you have questions or concerns, you can call us: Thursday-Thursday Same Day Endoscopy [phone] 7a-8p Otherwise contact [phone] and ask to speak to the latin american studies professor sales service professional. Follow up care is a ramirez part of your treatment and safety. Be sure to make and go to all appointments, and call your doctor if you are having problems. Discharge instructions reviewed with patient who expresses understanding. documented in this encounter Medications at Time of Discharge Medication Sig Dispensed Refills Start Date End Date polyethylene glycol (MIRALAX) 17 gram/dose Powder Take 17 g by mouth daily for 30 days. 510 g 6 07/26/2015 08/25/2015 dicyclomine (BENTYL) 10 mg Capsule Take 1 capsule by mouth 4 times daily as needed. 120 capsule 6 07/26/2015 04/08/2016 documented as of this encounter H&P Notes * Freddie Oswald MD - 08/21/2015 8:33 AM EST Gastroenterology and Hepatology Pre-Procedure History and Physical Exam Procedure: Colonoscopy: EGD Indication: change in bowels Patient Active Problem List Diagnosis Code ??? Altered bowel habits R19.4 ??? Generalized abdominal cramping R10.84 ??? Chronic nausea R11.0 ??? Dysphagia R13.10 EXAM: HEENT: Airway examined, oropharynx clear Mallampati Score: II (soft palate, uvula, fauces visible) LUNGS: Clear to auscultation HEART: Regular rate and rhythm, normal S1, S2 ABDOMEN: Normal bowel sounds, soft, non tender, non distended, A/P Proceed with the planned endoscopic procedure. ASA 2 - Patient with mild systemic disease with no functional limitations Sedation Plan: moderate (conscious sedation) Risks and benefits of the procedure explained to the patient. Consent signed. documented in this encounter Plan of Treatment Not on file documented as of this encounter Procedures Procedure Name Priority Date/Time Associated Diagnosis Comments SURGICAL PATHOLOGY REPORT Routine 08/21/2015 9:29 AM EST SPECIMEN TO PATHOLOGY Routine 08/21/2015 9:29 AM EST SPECIMEN TO PATHOLOGY Routine 08/21/2015 9:29 AM EST SPECIMEN TO PATHOLOGY Routine 08/21/2015 9:29 AM EST SPECIMEN TO PATHOLOGY Routine 08/21/2015 9:29 AM EST COLONOSCOPY, POLYPECTOMY, REMOVAL LESION BY SNARE (WRVU 4.57) 08/21/2015 8:48 AM EST Abdominal bloating Chronic nausea Generalized abdominal pain Altered bowel habits UPPER GASTROINTESTINAL ENDOSCOPY,WITH BIOPSY SINGLE OR MULTIPLE (WRVU 2.39) 08/21/2015 8:48 AM EST Abdominal bloating Chronic nausea Generalized abdominal pain Altered bowel habits COLONOSCOPY FLEXIBLE, WITH BX (WRVU 3.56) 08/21/2015 8:48 AM EST Abdominal bloating Chronic nausea Generalized abdominal pain Altered bowel habits COLONOSCOPY Routine 08/21/2015 8:44 AM EST UPPER GI ENDOSCOPY Routine 08/21/2015 8: 43 AM EST documented in this encounter Results * Surgical Pathology Report (08/21/2015 9:29 AM EST) Final Diagnosis [id number] ? Location: The signing pathologist has (i) examined the relevant preparation(s) for the specimen(s) and (ii) rendered or confirmed the diagnosis(es). . ?Surgical Pathology DIAGNOSIS A - Duodenum, biopsy: Duodenal mucosa within normal limits, including preserved villous architecture. B - Colon, biopsy: Colonic mucosa within normal limits. C - Stomach, biopsy: Gastric antral mucosa within normal limits. No H. pylori-like microorganism is seen. D - Sigmoid colon, polypectomy: Benign mucosal prolapse polyp. CR-PX 08/22/15 AAY 08/22/15 Verified by: ? Anatoly Ramirez MD ?Pathologist ?(Electronic Signature) The attending pathologist whose signature appears on this report has reviewed all diagnostic slides and has edited the gross and/or microscopic portion of the report in rendering the final pathologic diagnosis. CLINICAL INFORMATION Specimen Submitted: A - Bx of duodenum B - Bx of colon r/o inflammation C - Bx of stomach r/o h pylori D - 5mm polyp sigmoid suspect HP Clinical History: Patient with diarrhea Clinical Diagnosis: Same SPECIMEN PROCESSING A - Labeled/Fixative: Biopsy of duodenum, formalin. Quantity/Size: Eight, 0.3-0.4 cm. Tissue Description: Soft, tamayo-pink tissue. Sections/Processi ng: (T2) B - Labeled/Fixative: Biopsy of colon rule out inflammation, formalin. Quantity/Size: Multiple, 0.2-0.4 cm. Tissue Description: Soft, yellow-tamayo tissue. Sections/Processi ng: (T5) C - Labeled/Fixative: Biopsy of stomach rule out H. Pylori, formalin. Quantity/Size: Three, averaging 0.3 cm. Tissue Description: Soft, tamayo-pink tissue. Sections/Processi ng: (T1) . SPECIMEN PROCESSING D - Labeled/Fixative: Five no matter polyp sigmoid, formalin. Quantity/Size: Single, 0.5 x 0.4 x 0.3 cm. Tissue Description: Polypoid, pink-tamayo tissue. Sections/Processi ng: Inked and bisected. (T1) ??ejr 08/22/2015 2:04 PM [facility] GI Biopsy 08/21/2015 9:29 AM EST 08/21/2015 9:29 AM EST GI Biopsy 08/21/2015 9:29 AM EST 08/21/2015 9:29 AM EST GI Biopsy 08/21/2015 9:29 AM EST 08/21/2015 9:29 AM EST GI Biopsy 08/21/2015 9:29 AM EST 08/21/2015 9:29 AM EST Freddie Oswald MD PATHOLOGY/CYTOLOGY [place] Performing Organization Address [facility] [place] [address] * Specimen to Pathology (surgical or derm) (08/21/2015 9:29 AM EST) AP Specimen 08/21/2015 9:29 AM EST 08/21/2015 9:29 AM EST Narrative [facility] - 08/21/2015 9:29 AM EST Specimen requisition ordered. ??Separate Pathology report to follow Freddie Oswald MD PATHOLOGY/CYTOLOGY [place] Performing Organization Address [facility] Co de Phone Number [facility] [place] [address] * Specimen to Pathology (surgical or derm) (08/21/2015 9:29 AM EST) AP Specimen 08/21/2015 9:29 AM EST 08/21/2015 9:29 AM EST Narrative [facility] - 08/21/2015 9:29 AM EST Specimen requisition ordered. ??Separate Pathology report to follow Freddie Oswald MD PATHOLOGY/CYTOLOGY [place] Performing Organization Address [facility] Co de Phone Number [facility] [place] [address] * Specimen to Pathology (surgical or derm) (08/21/2015 9:29 AM EST) AP Specimen 08/21/2015 9:29 AM EST 08/21/2015 9:29 AM EST Narrative [facility] - 08/21/2015 9:29 AM EST Specimen requisition ordered. ??Separate Pathology report to follow Freddie Oswald MD PATHOLOGY/CYTOLOGY [place] Performing Organization Address [facility] [place] [address] * Specimen to Pathology (surgical or derm) (08/21/2015 9:29 AM EST) AP Specimen 08/21/2015 9:29 AM EST 08/21/2015 9:29 AM EST Narrative [facility] - 08/21/2015 9:29 AM EST Specimen requisition ordered. ??Separate Pathology report to follow Freddie Oswald MD PATHOLOGY/CYTOLOGY [place] Performing Organization Address [facility] [place] [address] * COLONOSCOPY (08/21/2015 8:44 AM EST) COLONOSCOPY [facility] Endoscopy Patient Name: Jak Georges ? Procedure Date: 08/21/2015 8:44 AM ? N: [id number] ? Date of : 1985 ? Age: 30 ? Order #: [id number] ? Procedure: ? Colonoscopy Indications: ? Chronic diarrhea Providers: ? Freddie Oswald MD, Roxana Burns ? NERI Chauhan, Hilda Cochran, ? Bobby Burgess MD: ?Joe Johansen MD, Dara Rowland, ? STATISTICAL METHODS PROFESSOR Medicines: ? Midazolam 1 mg IV, Fentanyl 50 ? micrograms IV Complications: ? No immediate complications. Procedure: ? The procedure, indications, benefits, ? risks and alternatives were explained ? to the patient. Specifically ? discussed were potential ? complications including, but not ? limited to, bleeding, perforation, ? infection, missing a cancer, and ? adverse medication reactions. The ? patient was placed in the left ? lateral decubitus position, and a ? digital rectal exam was performed. ? The Colonoscope was inserted in the ? anus and under direct visualization, ? advanced to the terminal ileum. ? Careful inspection was made as the ? colonoscope was withdrawn. The ? colonoscopy was performed without ? difficulty. The patient tolerated the ? procedure well. The quality of the ? bowel preparation was excellent. ? Scope withdrawal time was 8 minutes. ? Findings: ? The colon mucosa (entire examined portion) appeared ? normal. Biopsies were taken with a cold forceps for ? histology. ? The terminal ileum appeared normal. ? A 4 mm polyp was found in the sigmoid colon. The ? polyp was sessile. The polyp was removed with a cold ? snare. Resection and retrieval were complete. ? Internal hemorrhoids were found during retroflexion. ? The hemorrhoids were small. ? Impression: ?- The entire examined colon is ? normal. Biopsied. ? - The examined portion of the ileum ? was normal. ? - One 4 mm polyp in the sigmoid ? colon. Resected and retrieved. ? - Internal hemorrhoids. Recommendation: ?- Await pathology results. ? __ Freddie Oswald MD 08/21/2015 9:41 AM This report has been signed electronically. Number of Addenda: 0 Note Initiated On: 08/21/2015 8:44 AM PROVATION 08/21/2015 8:44 AM EST Joe Johansen MD GENERAL SURGICAL ORD ERABLES PROVATION * UPPER GI ENDOSCOPY (08/21/2015 8:43 AM EST) UPPER GI ENDOSCOPY [facility] Endoscopy Patient Name: Jak Georges ? Procedure Date: 08/21/2015 8:43 AM ? N: [id number] ? Date of : 1985 ? Age: 30 ? Order #: [id number] ? Procedure: ? Upper GI endoscopy Indications: ? abdominal pain and diarrhea Providers: ? Freddie Oswald MD, Roxana Burns ? NERI Chauhan, Hilda Cochran, ? Bobby Burgess MD: ?Joe Johansen MD, Dara Rowland, ? STATISTICAL METHODS PROFESSOR Medicines: ? Midazolam 3 mg IV, Fentanyl 150 ? micrograms IV, Diphenhydramine 50 mg ? IV Complications: ? No immediate complications. Procedure: ? The procedure, indications, benefits, ? risks and alternatives were explained ? to the patient. Specifically ? discussed were potential ? complications including, but not ? limited to, bleeding, perforation, ? infection, missing a cancer, and ? adverse medication reactions. The ? Endoscope was introduced through the ? mouth, and advanced to the third part ? of duodenum. The patient tolerated ? the procedure well. The upper GI ? endoscopy was accomplished without ? difficulty. The patient tolerated the ? procedure well. ? Findings: ? LA Grade A (one or more mucosal breaks less than 5 ? mm, not extending between tops of 2 mucosal folds) ? esophagitis with no bleeding was found. There was a ? single linear erosion ? The entire examined stomach was normal. Biopsies were ? taken with a cold forceps for histology. ? Patchy mildly erythematous mucosa without active ? bleeding and with no stigmata of bleeding was found ? in the second part of the duodenum. Biopsies for ? histology were taken with a cold forceps for for ? evaluation of celiac disease. ? Impression: ?- LA Grade A reflux esophagitis. ? - Normal stomach. Biopsied. ? - Erythematous duodenopathy. Biopsied. Recommendation: ?- Await pathology results. ? _ Freddie Oswald MD 08/21/2015 9:06 AM This report has been signed electronically. Number of Addenda: 0 Note Initiated On: 08/21/2015 8:43 AM PROVATION 08/21/2015 8:43 AM EST Joe Johansen MD GENERAL SURGICAL ORD ERABLES PROVATION documented in this encounter Visit Diagnoses Not on filedocumented in this encounter Administered Medications Inactive Administered Medications - up to 3 most recent administrations Medication Order MAR Action Action Date Dose Rate Site lactated ringers infusion 100 mL/hr, Intravenous, CONTINUOUS, Starting on Thu08/21/15 at 0830, Until Thu08/21/15 at 1003, Endoscopy (Day of Procedure) New Bag 08/21/2015 8:19 AM EST 100 mL/hr 100 mL/hr documented in this encounter Active and Recently Administered Medications Times are shown in EST. Continuous Medication Order 08/19/2015 08/20/2015 08/21/2015 lactated ringers infusion (CANCELED) 100 mL/hr, Intravenous, CONTINUOUS, Starting on Thu08/21/15 at 0830, Until Thu08/21/15 at 1003, Endoscopy (Day of Procedure) 0819 (New Bag - Prov ider: Nick Vallejo RN) PRN Medication Order 08/19/2015 08/20/2015 08/21/2015 diphenhydrAMINE (BENADRYL) injection (CANCELED) ONCE PRN, Starting on Thu08/21/15 at 0850, Until Thu08/21/15 at 1003, Intra-Operative (Intra-Procedure), Routine 0850 (Given - Provid er: Roxana Chauhan RN)0853 (Given - Provider: Roxana Chauhan RN) fentaNYL 50 mcg/mL multi-dose injection (CANCELED) ONCE PRN, Starting on Thu08/21/15 at 0850, Until Thu08/21/15 at 1003, Intra-Operative (Intra-Procedure), Routine 0850 (Given - Provid er: Roxana Chauhan RN)0853 (Given - Provider: Roxana Chauhan RN)0856 (Given - Provider: Roxana Chauhan RN)0904 (Given - Provider: Roxana Chauhan RN) midazolam (PF) (VERSED) 1 mg/mL multi-dose injection (CANCELED) ONCE PRN, Starting on Thu08/21/15 at 0850, Until Thu08/21/15 at 1003, Intra-Operative (Intra-Procedure), Routine 0850 (Given - Provid er: Roxana Chauhan RN)0853 (Given - Provider: Roxana Chauhan RN)0856 (Given - Provider: Roxana Chauhan RN)0904 (Given - Provider: Roxana Chauhan RN) documented in this encounter Care Teams Water Treatment Plant Supervisor Relationship Specialty Start Date End Date Joe Johansen MD [address] [place] [phone] PCP - General 01/26/14 02/26/23 documented as of this encounter
--- OUTSIDE RECORDS SUMMARY | 2024-06-13 20:27 | XMS_ITS | Clinical Summary ---
Author Organization [facility] Address [facility] [place] [address] Care Team Providers Care Pipe Crew Foreman Name Role Phone Unknown Primary Care Provider Unavailabl e Allergies Active Allergy Reactions Criticality Noted Date Comments Clindamycin Itching High 07/26/2015 Turn bright red. Medications Medication Sig Dispensed Refills Start Date End Date Status dicyclomine (BENTYL) 10 mg Capsule Take 1 capsule by mouth 3 times daily as needed (for abdominal cramping). 90 capsule 11 03/03/2017 Active Active Problems Problem Noted Date Diagnosed Date Chronic nausea 07/29/2015 Dysphagia 07/29/2015 Altered bowel habits 07/26/2015 Generalized abdominal cramping 07/26/2015 Social History Tobacco Use Types Packs/Day Years Used Date Smoking Tobacco: Former Cigarettes Smokeless Tobacco: Never Comments:Smokes 2-3 times pe r month Alcohol Use Standard Drinks/Week Comments Yes 0 (1 standard drink = 0.6 oz pur e alcohol) Occasional Sex and Gender Information Value Date Recorded Sex Assigned at Not on file Gender Identity Not on file Sexual Orientation Not on file Last Filed Vital Signs Vital Sign Reading Time Taken Comments Blood Pressure 123/73 04/08/2016 10:50 AM EDT Pulse 84 04/08/2016 10:50 AM EDT Temperature 36.6 ??C (97.9 ??F) 08/21/2015 8:07 AM ES T Respiratory Rate 11 08/21/2015 9:25 AM EST Oxygen Saturation 97% 08/21/2015 9:25 AM EST Inhaled Oxygen Concentration - - Weight 145.6 kg (321 lb) 04/08/2016 10:50 AM EDT Height 185.4 cm (6' 1) 04/08/2016 10:50 AM EDT Body Mass Index 42.35 04/08/2016 10:50 AM EDT Plan of Treatment Health Maintenance Due Date Last Done Comments HIV screen 2003 Hepatitis C Screening 2003 Lipid Screening 2003 Hepatitis B vaccine (0-59 yrs) (1) 2004 Tetanus/Diphtheria/Pertussis Vaccines (1 - Tdap) 07/17 Covid-19 Vaccine (1 - 2023-25 season) 2024 Influenza (Flu) vaccine (1 o f 1 - Influenza standard series) 02/28/2024 Care Teams Pipe Crew Foreman Relationship Specialty Start Date End Date Unknown None PCP - General 02/27/23
--- OUTSIDE RECORDS SUMMARY | 2024-06-13 20:27 | XMS_ITS | Encounter Summary ---
Author Organization [facility] Address [address] [place] [address] Care Team Providers Care Freight Agent Name Role Phone José Manuel Omalley MD Primary Care Provider [phone] Encounter Details Date Type Department Care Team (Latest Contact Info) Description 02/18/2018 10:46 EDT - 02/18/2018 23:59 EDT Hospital Encounter [address] [address] Unknown, Provider, MD Discharge Disposition: Home or [...] Code Departure Means Destination Home or Self Fdc documented in this encounter Plan of Treatment Not on file documented as of this encounter Visit Diagnoses Not on filedocumented in this encounter Care Teams Freight Agent Relationship Specialty Start Date End Date José Manuel Omalley MD [address] [place] [address] [place] [phone] PCP - General 09/11/14 documented as of this encounter
--- OUTSIDE RECORDS SUMMARY | 2024-06-13 20:27 | XMS_ITS | Encounter Summary ---
Author Organization [facility] Address [facility] [place] [address] Care Team Providers Care Stock Turner Name Role Phone Joe Johansen MD Primary Care Provider [phone] Reason for Visit * Reason Comments GI Problem * Consultation (Routine) - Closed Specialty Diagnoses / Procedures Referred By Conttrinidad t Referred To Contact Gastroenterology Diagnoses chronic abd pain with intermittent diarrhea/constipation suspect IBS Alan Cruz PA [address] [place] [address] [facility] [address] [place] [address] Referral ID Status Reason Start Date Expiration Date V isits Requested Visits Authorized [id number] Closed Consult, Test & Treat [facility] 05/16/2015 05/15/2016 1 1 Encounter Details Date Type Department Care Team (Late st Contact Info) Description 07/26/2015 10:00 AM EST Office [place] [phone] [place] [address] Generalized abdominal pain; Altered bowel habits; Chronic nausea; Abdominal bloating Social History Tobacco Use Types Packs/Day Years [...] Sign Reading Time Taken Comments Blood Pressure 133/71 07/26/2015 10:06 AM EST Pulse 68 07/26/2015 10:06 AM EST Temperature - - Respiratory Rate - - Oxygen Saturation - - Inhaled Oxygen Concentration - - Weight 148.3 kg (326 lb 14.4 oz) 07/26/2015 10:06 AM EST Weighed with shoes. Height 185.4 cm (6' 1) 07/26/2015 10:0 6 AM EST Body Mass Index 43.13 07/26/2015 10:06 AM EST documented in this encounter Patient Instructions * Patient Instructions* Dara Rowland APRN - 07/26/2015 10:42 AM EST 1. Upper endoscopy with biopsies 2. Colonoscopy with biopsies 3. Recommend eating smaller more frequent 5-6 low fat meals per day 4. FODMAP diet and copy provided 5. Abdominal pain: Bentyl (Dicyclomine) 10 mg every 6 hours as needed 6. Bowel habits: Miralax 17 grams before bedtime 7. Reduce intake of soda 8. Call or email with an update in 3-4 weeks 9. Follow up 3 months Dara Rowland APRN [phone] documented in this encounter Progress Notes * Dara Rowland APRN - 07/26/2015 8:04 AM EST Subjective: Patient ID: Jak Georges Jr. is a 30 y.o. man who presents for further evaluation of his gastrointestinal symptoms at the request of Alan TINAJERO. GI Problem List: 1. Chronic abdominal with intermittent constipation/diarrhea 2. Dysphagia 3. Chronic nausea HPI Comments: Jak Georges Jr is a pleasant 30 year old man who presents for consultation of his chronic abdominal pain with intermittent constipation and diarrhea. He is accompanied significant other. He reports experiencing upper and lower abdominal cramping associated with altered bowel habits forthe past six years. He reports that bowel habits vary from day to day. He sometimes will eat then will need to have bowel movement immediately after eating or will go 2-3 days without a bowel movement. Stools range from soft loose to formed. He denies melena, rectal or anal pain. He admits to periodic BRBPR after wiping but no blood in or on stool or blood clots. He reports waking up 1-2 times per night secondary to urge to defecate. He denies fecal incontinence. He denies straining, tenesmus or incomplete evacuation of stool. He is unable to identify any specific triggers. He reports upper abdominal cramping that fluctuates in intensity from day to day. He reports that his stomach can feel messed up for 1-2 weeks then will fine for a few weeks.He reports that it is unpredictable and not always correlated with eating. The pain does not radiate. He reports feeling nauseous intermittently. He denies early satiety, postprandial fullness or vomiting. He reports having gas and bloating every day. No distention. He will use Imodium with benefit. He reports feeling like his food is getting stuck in epigastric area. This occurs to solids but occasionally occurs with liquids. He will wait it out. He denies chocking or coughing immediately aftereating. He admits to eating 1 hour before going to bed. He only eats one meal per day. He reports decreasing his intake of soda from 2 liters to 1.5 liters per day. He reports rare NSAID use. Weight gain of 50 lbs over the past year. No food allergies or intolerances. Denies heartburn, regurgitation, acid taste, indigestion, ENT concerns, chest pain, odynophagia. Review of Systems Constitutional: Negative. HENT: Negative. Eyes: Negative. Respiratory: Negative. Cardiovascular: Negative. Gastrointestinal: See HPI Endocrine: Negative. Genitourinary: Negative. Musculoskeletal: Negative. Skin: Negative. Allergic/Immunologic: Negative. Neurological: Negative. Hematological: Negative. Psychiatric/Behavioral: Negative. Allergies Allergen Reactions ??? Clindamycin Itching Turn bright red. Medications: none PMHx: None Past Surgical History Procedure Laterality Date ??? Tonsillectomy and adenoidectomy History Social History ??? Marital Status: Spouse Name: N/A Number of Children: N/A ??? Years of Education: N/A Occupational History ??? Not on file. Social History Main Topics ??? Smoking status: Smoker, Current Status Unknown -- 20 years Types: Cigarettes ??? Smokeless tobacco: Never Used Comment: Smokes 2-3 times per month ??? Alcohol Use: 0.0 oz/week 0 Standard drinks or equivalent per week Comment: Occasional ??? Drug Use: Yes Comment: Marijuana. ??? Sexual Activity: Not on file Other Topics Concern ??? Not on file Social History Narrative ??? No narrative on file FMHx: no h/o colon or esophageal cancer; IBD; celiac disease; liver or pancreatic disease Vital Signs: BP 133/71; P 68; Wt 326 lbs 14.4 oz; Ht 6'1; BMI: 43.2 Objective: Physical Exam Constitutional: He is oriented to person, place, and time. He appears well- developed and well-nourished. No distress. HENT: Head: Normocephalic and atraumatic. Mouth/Throat: Oropharynx is clear and moist. No oropharyngeal exudate. Eyes: Conjunctivae and EOM are normal. Pupils are equal, round, and reactive to light. Right eye exhibits no discharge. Left eye exhibits no discharge. No scleral icterus. Neck: Normal range of motion. Neck supple. No JVD present. No tracheal deviation present. No thyromegaly present. Cardiovascular: Normal rate, regular rhythm, normal heart sounds and intact distal pulses. Exam reveals no gallop and no friction rub. No murmur heard. Pulmonary/Chest: Effort normal and breath sounds normal. No stridor. No respiratory distress. He has no wheezes. He has no rales. He exhibits no tenderness. Abdominal: Soft. Bowel sounds are normal. He exhibits no distension and no mass. There is no tenderness. There is no rebound and no guarding. Abdominal exam limited secondary to body habitus. No hepatosplenomegaly. No succussion splash. No epigastric bruit. Genitourinary: Rectal exam deferred. Lymphadenopathy: He has no cervical adenopathy. Neurological: He is alert and oriented to person, place, and time. No cranial nerve deficit. Skin: Skin is warm and dry. No rash noted. He is not diaphoretic. No erythema. No pallor. Psychiatric: He has a normal mood and affect. His behavior is normal. Judgment and thought content normal. Vitals reviewed. Assessment and Plan: Jak Georges Jr is a pleasant 30 year old man who presents for consultation of his chronic abdominal pain with intermittent constipation and diarrhea. His constellation of symptoms is most suggestiveof IBS-mixed but waking up at night to defecate is not a typical finding of IBS but question role of eating before bedtime and food intolerances. Less likely IBD given no fmhx but cannot exclude. Discussed the etiology, pathophysiology, diagnostic tests and treatment of IBS and IBD. Recommend colonoscopy with biopsies. Recommend FODMAP diet and eating smaller more frequent 5-6 low fat meals per day. Recommend MiraLax 17 grams qhs. Recommend Bentyl 10 mg QID prn. Await results for further management. Consider MRE or SBFT. 2. Upper abdominal pain: question dyspepsia or IBS. Discussed the etiology, pathophysiology, diagnostic tests and treatment of dyspepsia. Recommend EGD with biopsies. Await results for further management. Consider abdominal US. Consider MRE or SBFT. 3. Chronic nausea: question dyspepsia, IBS. Discussed the etiology, pathophysiology, diagnostic tests and treatment of chronic nausea. EGD with biopsies. Offered anti-emetic but he declined. Await results for further management. 4. Dysphagia: question mechanical obstruction or esophageal dysmotility. Discussed the etiology, pathophysiology, diagnostic tests and treatment of dysphagia. Recommend EGD with biopsies. Await results for further management. I did my best to answer all of his questions. The following plan was formulated. Plan: 1. Upper endoscopy with biopsies 2. Colonoscopy with biopsies 3. Recommend eating smaller more frequent 5-6 low fat meals per day 4. FODMAP diet and copy provided 5. Bentyl (Dicyclomine) 10 mg QID prn 6. Miralax 17 grams qhs; consider Amitiza 8-24 mcg qd-BID pr Linaclotide 145-290 mcg qam 7. Reduce intake of soda 8. Lab work today 9. Call or email with an update in 3-4 weeks 10. Follow up 3 months Patient understands and is agreeable to the above plan. Written instructions provided. I spent a total of 55 minutes face to face with this patient; 30 minutes were spent counseling the patient in the medical problems described above. Thank you for the referral, Dara Rowland APRN Section of Gastroenterology [place] [address] documented in this encounter Plan of Treatment Scheduled Orders Name Type Priority Associated Diagnoses Orde r Schedule COLONOSCOPY Procedures Routine Generalized abdominal pain Altered bowel habits Chronic nausea Abdominal bloating Ordered: 07/26/2015 UPPER GI ENDOSCOPY Procedures Routine Generalized abdominal pain Altered bowel habits Chronic nausea Abdominal bloating Ordered: 07/26/2015 documented as of this encounter Procedures Procedure Name Priority Date/Time Associated Diagnosis Comments TISSUE TRANSGLUTAMINASE, IGA Routine 07/26/2015 11:19 AM EST Generalized abdominal pain Altered bowel habits Chronic nausea Abdominal bloating SEDIMENTATION RATE Routine 07/26/2015 11 :19 AM EST Generalized abdominal pain Altered bowel habits Chronic nausea Abdominal bloating CRP, CARDIAC RISK (HS CRP) Routine 07/26/2015 11:19 AM EST Generalized abdominal pain Altered bowel habits Chronic nausea Abdominal bloating IGA Routine 07/26/2015 11:19 AM EST Generalized abdominal pain Altered bowel habits Chronic nausea Abdominal bloating documented in this encounter Results * IgA (07/26/2015 11:19 AM EST) IgA 361 70 - 400 mg/dL [facility] Blood specimen (specimen) 07/26/2015 11:19 AM EST 07/26/2015 11:24 AM EST Narrative Resulting Agency Comment Spec In Lab Santino Le MD CHEMISTRY ORDERABLES [facility] * Tissue transglutaminase, IgA (07/26/2015 11:19 AM EST) TTG IgA Ab 1.4 0.1 - 10.0 u/ml [facility] Comment: New methodology as of 10-31-2014 Negative = <7 U/mL Equivocal = 7-10 U/mL Positive = >10 U/mL Blood specimen (specimen) 07/26/2015 11:19 AM EST 07/26/2015 1:59 PM EST Narrative Resulting Agency Comment Spec In Lab Santino Le MD IMMUNOLOGY ORDERABLE S Performing Organization Address [facility] Phone Number [facility] * High Sensitivity CRP (07/26/2015 11:19 AM EST) C-Reactive Protein High Sensitivity 0.8 mg/L [facility] Comment: Interpretations: 1) For accurate cardiac risk assessment, the average of 2 values >2 weeks apart should be obtained (ref 1&2). A value >10 mg/L indicates an inflammatory condition, concentrations >10 mg/L should not be used for cardiac risk assessment. ?<1.0 mg/L: low risk ?1.0 - 3.0 mg/L: moderate risk ?>3.0 mg/L: high risk groups for future cardiovascular events 2) The general reference range of apparently healthy individuals using this test is <5.0 mg/L (derived from the test package insert) References: 1. Arianne LIMON et. al. ??AHA/CDC Scientific Statement: Markers of Inflammation and Cardiovascular Disease. ??Circulation 2003; 107:499-511 2. Ridker PM. ??Clinical applications of C-reactive protein for cardiovascular disease detection and prevention. ??Circulation 2003; 107:363-369 Blood specimen (specimen) 07/26/2015 11:19 AM EST 07/26/2015 11:24 AM EST Narrative Resulting Agency Comment Spec In Lab Santino Le MD CHEMISTRY ORDERABLES Performing Organization Address [facility] Phone Number YASH GIBBONS * Sedimentation rate (07/26/2015 11:19 AM EST) Sedimentation Rate Automated 7 0 - 15 mm/hr [facility] Blood specimen (specimen) 07/26/2015 11:19 AM EST 07/26/2015 11:24 AM EST Narrative Resulting Agency Comment Spec In Lab Santino Le MD HEMATOLOGY ORDERABLE S Performing Organization Address [facility] Phone [facility] documented in this encounter Visit Diagnoses Diagnosis Generalized abdominal pain Abdominal pain, generalized Altered bowel habits Other symptoms involving digestive system Chronic nausea Nausea alone Abdominal bloating Flatulence, eructation, and gas pain documented in this encounter Care Teams Stock Turner Relationship Specialty Start Date End Date Joe Johansen MD [address] [place] [phone] PCP - General 01/26/14 02/26/23 documented as of this encounter
--- OUTSIDE RECORDS SUMMARY | 2024-06-13 20:27 | XMS_ITS | Encounter Summary ---
Author Organization [facility] [place] [address] Care Team Providers Care Music Grapher Name Role Phone Joe Johansen MD Primary Care Provider [phone] Reason for Visit * Reason Onset Date Comments Medication Refill 04/10/2016 Encounter Details Date Type Department Care Team (Late st Contact Info) Description 04/10/2016 Ref[place] [phone] Gloria Gomez CMA GASTROENTEROLOGY DEPT Social History Tobacco Use Types Packs/Day Years [...] on filedocumented in this encounter Care Teams Music Grapher Relationship Specialty Start Date End Date Joe Johansen MD [address] [place] [phone] PCP - General 01/26/14 02/26/23 documented as of this encounter
--- OUTSIDE RECORDS SUMMARY | 2024-06-13 20:27 | XMS_ITS | Encounter Summary ---
Author Organization [facility] Address [address] [place] [address] Care Team Providers Care Commodity Buyer Name Role Phone José Manuel Omalley MD Primary Care Provider [phone] Encounter Details Date Type Department Care Team (Late st Contact Info) Description 09/11/2014 Results Only [facility] [place] [facility] [place] [place] [address] [place] [phone] Reno Holm MD [facility] [address] [place], [place] [id number] Social History Tobacco Use Types Packs/Day Years [...] Date/Time Associated Diagnosis Comments SURGICAL PATHOLOGY Routine 09/11/2014 9:02 EDT documented in this encounter Results * SURGICAL PATHOLOGY (09/11/2014 9:02 EDT) Pathology Report: SURGICAL PATHOLOGY REPORT Reports generated via electronic interface contain original data; however they are lacking the format of the original report. Caution should be taken when reading/interpreti ng unformatted reports. Name: ? JOSÉ MANUEL JAK Bustillo ? Accession #: ? [id number] ? : ? 1985 (Age: 29) ??M ? Collect Date: ? 09/11/2014 ? Location: ? [facility] ? Receive Date: ? 09/11/2014 ? Provider: RENO HOLM MD Copy to: ? Final Pathologic Diagnosis: A. TONSIL, LEFT, TONSILLECTOMY: - ??Tonsillar tissue with reactive lymphoid follicular hyperplasia. - ??Minor salivary glands and skeletal muscle with no specific histopathologic features. B. TONSIL, RIGHT, TONSILLECTOMY: ? 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 - ??Skeletal muscle with no specific histopathologic features. Document reviewed and electronically signed by: Art Reddy MD Report ??Date: 09/14/2014 15:04 By the signature above, the attending physician certifies that he/she has personally conducted a gross and/or microscopic examination of the described specimens and rendered or confirmed the above diagnosis. Specimen(s) Received: A. ??Left tonsil B. ??Right tonsil Clinical History: Hypertrophy of tonsils Gross Description: A. ?Received in formalin labelled with proper patient identification (initials T, H) and left tonsil is a palatine tonsil (3.5 x 2.3 x 1.6 cm). The mucosa is smooth and focally roughened with prominent crypts. ?? Serial sections reveal lobular homogeneous tissue without abnormality. ??A screening representative section is submitted as A1. B. ?Received in normal saline labelled with proper patient identification (initials T, H) and right tonsil is a palatine tonsil (4.0 x 2.3 x 1.8 cm). The mucosa is smooth and glistening with prominent crypts. ?? Serial sections reveal lobular homogeneous tissue without abnormality. ??A screening representative section is submitted as B1. Genevieve Mack 09/12/2014 11:[address] [facility] 09/11/2014 9:02 EDT 09/11/2014 9:02 EDT us Reno Holm MD PATHOLOGY ORDERABLES Final Resul t [facility] [address] [place] [address] documented in this encounter Visit Diagnoses Not on filedocumented in this encounter Care Teams Commodity Buyer Relationship Specialty Start Date End Date José Manuel Omalley MD [address] [place] [address] [place] [phone] PCP - General 09/11/14 documented as of this encounter
--- OUTSIDE RECORDS SUMMARY | 2024-06-13 20:27 | XMS_ITS | Encounter Summary ---
Author Organization [facility] Address [facility] [place] [address] Care Team Providers Care Ram Press Operator Name Role Phone Joe Johansen MD Primary Care Provider [phone] Reason for Visit * Reason Onset Date Comments Medication Refill 03/03/2017 Encounter Details Date Type Department Care Team (Late st Contact Info) Description 03/03/2017 [place] [address] Mark Sarabia APRN [facility] [place] [address] Social History Tobacco Use Types Packs/Day Years [...] on filedocumented in this encounter Care Teams Ram Press Operator Relationship Specialty Start Date End Date Joe Johansen MD [address] [place] [phone] PCP - General 01/26/14 02/26/23 documented as of this encounter
--- OUTSIDE RECORDS SUMMARY | 2024-06-13 20:27 | XMS_ITS | Encounter Summary ---
Author Organization [facility] Address [facility] [place] [address] Care Team Providers Care Pallet Stone Inserter Name Role Phone Unknown Primary Care Provider Unavailabl e Reason for Visit * Reason Onset Date Comments Medication Refill 04/11/2018 Encounter Details Date Type Department Care Team (Late st Contact Info) Description 04/11/2018 Ref[place] [address] Mark Sarabia, [facility] [address] GASTROENTER[place] [address] Social History Tobacco Use Types Packs/Day Years [...] on filedocumented in this encounter Care Teams Pallet Stone Inserter Relationship Specialty Start Date End Date Unknown None PCP - General 02/27/23 documented as of this encounter
--- OUTSIDE RECORDS SUMMARY | 2024-06-13 20:27 | XMS_ITS | Encounter Summary ---
Author Organization [facility] Address [facility] [place] [address] Care Team Providers Care Physician Non Invasive Cardiologist Name Role Phone Joe Johansen MD Primary Care Provider [phone] Reason for Visit * Auth/Cert - Closed Specialty Diagnoses / Procedures Referred By Contac t Referred To Contact Diagnoses Altered bowel habits, generalized abdomeninal pain, BRB{R. r/o IBD, pls obtain random colonic bx Procedures PRO COLONOSCOPY, DIAGNOSTIC PRO UPPER GI ENDOSCOPY, DIAGNOSTIC COLONOSCOPY, DIAGNOSTIC EGD, UPPER GI ENDOSCOPY Referral ID Status Reason Start Date Expiration Date Visits Re quested Visits Authorized [id number] Closed 1 1 Encounter Details Date Type Department Care Team (Late st Contact Info) Description 08/21/2015 9:00 AM EST - 08/21/2015 10:00 AM EST [place] [address] Freddie Oswald MD [facility] [place] [address] COLONOSCOPY FLEXIBLE, WITH BX (WRVU 3.56) Social History Tobacco Use Types Packs/Day Years [...] or concerns, please call us Thursday-Thursday Clinic [phone] 8a-5p Same Day Endo [phone] 7a-8p Nights and weekends contact [phone] and ask to speak to the paramedic second butler. Follow up care is a ramirez part [...] When should you call for help? Call [phone] anytime you think you may need emergency [...] can call us: Thursday-Thursday Same Day Endoscopy [phone] 7a-8p Otherwise contact [phone] and ask to speak to the paramedic second butler. Follow up care is a ramirez part [...] Report (08/21/2015 9:29 AM EST) Final Diagnosis [id number] ? Location: The signing pathologist has (i) [...] and bisected. (T1) ??ejr 08/22/2015 2:04 PM [facility] GI Biopsy 08/21/2015 9:29 AM EST 08/21/2015 9:29 AM EST GI Biopsy 08/21/2015 9:29 AM EST 08/21/2015 9:29 AM EST GI Biopsy 08/21/2015 9:29 AM EST 08/21/2015 9:29 AM EST GI Biopsy 08/21/2015 9:29 AM EST 08/21/2015 9:29 AM EST Freddie Oswald MD PATHOLOGY/CYTOLOGY [place] Performing Organization Address [facility]/[place] [address] * Specimen to Pathology (surgical or derm) (08/21/2015 9:29 AM EST) AP Specimen 08/21/2015 9:29 AM EST 08/21/2015 9:29 AM EST Narrative [facility] - 08/21/2015 9:29 AM EST Specimen requisition ordered. ??Separate Pathology report to follow Freddie Oswald MD PATHOLOGY/CYTOLOGY [place] Performing Organization Address [facility] Co de Phone Number [facility] [place] [address] * Specimen to Pathology (surgical or derm) (08/21/2015 9:29 AM EST) AP Specimen 08/21/2015 9:29 AM EST 08/21/2015 9:29 AM EST Narrative [facility] - 08/21/2015 9:29 AM EST Specimen requisition ordered. ??Separate Pathology report to follow Freddie Oswald MD PATHOLOGY/CYTOLOGY [place] Performing Organization Address [facility] [place] [address] * Specimen to Pathology (surgical or derm) (08/21/2015 9:29 AM EST) AP Specimen 08/21/2015 9:29 AM EST 08/21/2015 9:29 AM EST Narrative [facility] - 08/21/2015 9:29 AM EST Specimen requisition ordered. ??Separate Pathology report to follow Freddie Oswadl MD PATHOLOGY/CYTOLOGY [place] Performing Organization Address [facility] de Phone Number [place] [phone] * Specimen to Pathology (surgical or derm) (08/21/2015 9:29 AM EST) AP Specimen 08/21/2015 9:29 AM EST 08/21/2015 9:29 AM EST Narrative [facility] - 08/21/2015 9:29 AM EST Specimen requisition ordered. ??Separate Pathology report to follow Freddie Oswald MD PATHOLOGY/CYTOLOGY O MANNYSeldom Seen AdventuresMARCIAL Performing Organization Address [facility] [place] [address] * COLONOSCOPY (08/21/2015 8:44 AM EST) COLONOSCOPY [facility] Endoscopy Patient Name: Jak Georges ? Procedure Date: 08/21/2015 8:44 AM ? N: [id number] ? Date of : 1985 ? Age: 30 ? Order #: [id number] ? Procedure: ? Colonoscopy Indications: ? Chronic diarrhea Providers: ? Freddie Oswald MD, Roxana Burns ? NERI Chauhan, Hilda Cochran, ? Bobby Morris Referring : ?Joe Johansen MD, Dara Rowland, ? CAPACITY PLANNING MANAGER Medicines: ? Midazolam 1 mg IV, Fentanyl [...] UPPER GI ENDOSCOPY (08/21/2015 8:43 AM EST) Pathologist [facility] UPPER GI ENDOSCOPY [facility] Endoscopy Patient Name: Jak Georges ? Procedure Date: 08/21/2015 8:43 AM ? N: [id number] ? Date of : 1985 ? Age: 30 ? Order #: [id number] ? Procedure: ? Upper GI endoscopy Indications: ? abdominal pain and diarrhea Providers: ? Freddie Oswald MD, Roxana Burns ? Tien, NERI, Hilda Cochran, ? Bobby Burgess MD: ?Joe Johansen MD, Dara Rowland, ? CAPACITY PLANNING MANAGER Medicines: ? Midazolam 3 mg IV, Fentanyl [...] PROVATION documented in this encounter Visit Diagnoses Diagnosis Abdominal bloating Flatulence, eructation, and gas pain Chronic nausea Nausea alone Generalized abdominal pain Abdominal pain, generalized Altered bowel habits Other symptoms involving digestive system documented in this encounter Administered Medications Inactive Administered Medications - up to 3 most recent administrations Medication Order MAR Action Action Date Dose Rate Site diphenhydrAMINE (BENADRYL) injection ONCE PRN, Starting on Thu08/21/15 at 0850, Until Thu08/21/15 at 1003, Intra-Operative (Intra-Procedure), Routine Given 08/21/2015 8:53 AM EST 25 mg Given 08/21/2015 8:50 AM EST 25 mg fentaNYL 50 mcg/mL multi-dose injection ONCE PRN, Starting on Thu08/21/15 at 0850, Until Thu08/21/15 at 1003, Intra-Operative (Intra-Procedure), Routine Given 08/21/2015 9:04 AM EST 50 mcg Given 08/21/2015 8:56 AM EST 50 mcg Given 08/21/2015 8:53 AM EST 50 mcg lactated ringers infusion 100 mL/hr, Intravenous, CONTINUOUS, Starting on Thu08/21/15 at 0830, Until Thu08/21/15 at 1003, Endoscopy (Day of Procedure) New Bag 08/21/2015 8:19 AM EST 100 mL/hr 100 mL/hr midazolam (PF) (VERSED) 1 mg/mL multi-dose injection ONCE PRN, Starting on e 08/21/15 at 0850, Until e 08/21/15 at 1003, Intra-Operative (Intra-Procedure), Routine Given 08/21/2015 9:04 AM EST 1 mg Given 08/21/2015 8:56 AM EST 1 mg Given 08/21/2015 8:53 AM EST 1 mg documented in this encounter Active and Recently Administered Medications Times are shown in EST. Continuous Medication Order 08/19/2015 08/20/2015 08/21/2015 lactated ringers infusion (CANCELED) 100 mL/hr, Intravenous, CONTINUOUS, Starting on Thu08/21/15 at 0830, Until Thu08/21/15 at 1003, Endoscopy (Day of Procedure) 0819 ([facility] ider: Nick Vallejo RN) PRN Medication Order 08/19/2015 08/20/2015 08/21/2015 diphenhydrAMINE (BENADRYL) injection (CANCELED) ONCE PRN, Starting on Thu08/21/15 at 0850, Until Thu08/21/15 at 1003, Intra-Operative (Intra-Procedure), Routine 0850 (Given - Provid er: Roxana Chauhan RN)0853 (Given - Provider: Roxana Chauhan RN) fentaNYL 50 mcg/mL multi-dose injection (CANCELED) ONCE PRN, Starting on Thu08/21/15 at 0850, Until 08/21/15 at 1003, Intra-Operative (Intra-Procedure), Routine 0850 (Given - Provid er: Roxana Chauhan RN)0853 (Given - Provider: Roxana Chauhan RN)0856 (Given - Provider: Roxana Chauhan RN)0904 (Given - Provider: Roxana Chauhan RN) midazolam (PF) (VERSED) 1 mg/mL multi-dose injection (CANCELED) ONCE PRN, Starting on e 08/21/15 at 0850, Until 08/21/15 at 1003, Intra-Operative (Intra-Procedure), Routine 0850 (Given - Provid er: Roxana Chauhan RN)0853 (Given - Provider: Roxana Chauhan, NERI)0856 (Given - Provider: Roxana Chauhan, NERI)0904 (Given - Provider: Roxana Chauhan, NERI) documented in this encounter Care Teams Physician Non Invasive Cardiologist Relationship Specialty Start Date End Date Joe Johansen MD [address] [place] [phone] PCP - General 01/26/14 02/26/23 documented as of this encounter
--- OUTSIDE RECORDS SUMMARY | 2024-06-13 20:28 | XMS_ITS | Encounter Summary ---
Author Organization [facility] Address [facility] [place] [address] Care Team Providers Care Carbon Furnace Operator Name Role Phone Joe Johansen MD Primary Care Provider [phone] Encounter Details Date Type Department Care Team (Latest Contact Info) Description 01/26/2014 4:33 PM EDT - 01/26/2014 11:59 PM EDT Hospital Encounter XRay at [address] [place] [address] CLINIC, DR SADIE Cruz, Alan Deng, PA [address] [place] [address] Discharge Disposition: Home Social History Tobacco Use Types Packs/Day Years Used Date Smoking Tobacco: Never Assessed Sex and Gender Information Value Date Recorded Sex Assigned at Not on file Gender Identity Not on file Sexual Orientation Not on file documented as of this encounter Plan of Treatment Not on file documented as of this encounter Procedures Procedure Name Priority Date/Time Associated Diagnosis Comments XR ELBOW 3 VIEW COMPLETE Routine 01/26/2014 4:40 PM EDT documented in this encounter Results * XR elbow 3 view complete (01/26/2014 4:40 PM EDT) Anatomical Region Laterality Modality Elbow N/A Radiographic Sera ging 01/26/2014 4:40 PM EDT Narrative 01/26/2014 4:50 PM EDT Examination ELBOW 3 VIEW COMPLETE/RIGHT Clinical History RIGHT ELBOW PAIN TRAUMA 01/08/14 RECENT CELLULITIS, OLECRANON BURSITIS Comparison None Technique 3 views. Findings No osseous abnormality. ??No joint effusion. Impression Procedure Note Corrie Veronica MD - 01/26/2014 Examination ELBOW 3 VIEW COMPLETE/RIGHT Clinical History RIGHT ELBOW PAIN TRAUMA 01/08/14 RECENT CELLULITIS, OLECRANON BURSITIS Comparison None Technique 3 views. Findings No osseous abnormality. No joint effusion. Impression Alan TINAJERO IMG DX ORDERABLES documented in this encounter Visit Diagnoses Not on filedocumented in this encounter Care Teams Carbon Furnace Operator Relationship Specialty Start Date End Date Joe Johansen MD [address] [place] [phone] PCP - General 01/26/14 02/26/23 documented as of this encounter
[2024-06-13 23:07] LABS: ALT 34 U/L (16-63); AST 19 U/L (15-37); Albumin 4.2 g/dL (3.4-5.0); Alkaline Phosphatase 53 U/L (46-116); BUN 17 mg/dL (7-18); Bilirubin, Total 0.41 mg/dL (0.2-1.0); Calcium 9.3 mg/dL (8.5-10.1); Chloride 103 mmol/L (98-107); Glucose 85 mg/dL (74-106); Potassium 3.9 mmol/L (3.5-5.1); Sodium 139 mmol/L (136-145); Total Protein 7.7 g/dL (6.4-8.2)
== END 2024-06-13 20:27 | disposition home or self-care (01) ==
LOC: NCHCN 20:26
PROVIDERS: PCP Physician Assistant Medical; Visit Provider Nurse Practitioner Family
DX: E78.5 Hyperlipidemia, unspecified (principal); E11.9 Type 2 diabetes mellitus without complications; E55.9 Vitamin D deficiency, unspecified
CPT/HCPCS: 80053; 82306; 83036

== ENCOUNTER 2024-06-24 01:03 | Outpatient (CLI) | payer OTHER, SELFPAY ==
--- OUTSIDE RECORDS SUMMARY | 2024-06-24 01:05 | XMS_ITS | Clinical Summary ---
Author Organization [facility] Address [facility] [place] [address] Care Team Providers Care Print Color Matcher Name Role Phone Unknown Primary Care Provider [...] - Influenza standard series) 02/28/2024 Care Teams Print Color Matcher Relationship Specialty Start Date End Date Unknown None PCP - General 02/27/23
--- OUTSIDE RECORDS SUMMARY | 2024-06-24 01:05 | XMS_ITS | Encounter Summary ---
Author Organization [facility] Address [address] [place] [address] Care Team Providers Care Clinical Massage Therapist Name Role Phone José Manuel Omalley MD Primary Care Provider [phone] Encounter Details Date Type Department Care Team (Late st Contact Info) Description 09/11/2014 Results Only [facility] - [facility] ([facility]) [address] [place] [address] [id number] Reno Holm MD Pending sale to [facility] [address] [place], [place] [id number] Social History Tobacco Use Types Packs/Day Years [...] MANUEL JAK Bustillo ? Accession #: ? [id number] ? : ? 1985 (Age: 29) ??M [...] reveal lobular homogeneous tissue without abnormality. ??A open claims representative section is submitted as A1. B. ?Received in normal saline labelled with proper patient identification (initials T, H) and right tonsil is a palatine tonsil (4.0 x 2.3 x 1.8 cm). The mucosa is smooth and glistening with prominent crypts. ?? Serial sections reveal lobular homogeneous tissue without abnormality. ??A open claims representative section is submitted as B1. Genevieve Mack 09/12/2014 11:30 AM End of Report [facility] 09/11/2014 9:02 EDT 09/11/2014 9:02 EDT us Reno Holm MD PATHOLOGY ORDERABLES Final Resul t [facility] [address] [place] [address] documented in this encounter Visit Diagnoses Not on filedocumented in this encounter Care Teams Clinical Massage Therapist Relationship Specialty Start Date End Date José Manuel Omalley MD [address] [place] [address] [place] [phone] PCP - General 09/11/14 documented as of this encounter
--- OUTSIDE RECORDS SUMMARY | 2024-06-24 01:05 | XMS_ITS | Encounter Summary ---
Author Organization [facility] Address [address] [place] [address] Care Team Providers Care Sheet Finisher Name Role Phone José Manuel Omalley MD Primary Care Provider [phone] Encounter Details Date Type Department Care Team (Latest Contact Info) Description 09/11/2014 15:30 EDT - 09/11/2014 23:59 EDT Hospital Encounter [address] [address] Unknown, Provider, MD Discharge Disposition: Home or [...] Code Departure Means Destination Home or Self Usp documented in this encounter Plan of Treatment Not on file documented as of this encounter Visit Diagnoses Not on filedocumented in this encounter Care Teams Sheet Finisher Relationship Specialty Start Date End Date José Manuel Omalley MD [address] [place] [address] [place] [phone] PCP - General 09/11/14 documented as of this encounter
--- OUTSIDE RECORDS SUMMARY | 2024-06-24 01:05 | XMS_ITS | Encounter Summary ---
Author Organization [facility] Address [facility] [place] [address] Care Team Providers Care Spring Coiler Hand Name Role Phone Joe Johansen MD Primary Care Provider Reason for Visit * Reason Onset Date Comments Medication Refill 04/21/2017 Encounter Details Date Type Department Care Team (Late st Contact Info) Description 04/21/2017 [place] [address] Mark Sarabia APRN [facility] [place]STRO[place] [address] Social History Tobacco Use Types Packs/Day Years [...] on filedocumented in this encounter Care Teams Spring Coiler Hand Relationship Specialty Start Date End Date Joe Johansen MD [address] [place] [phone] PCP - General 01/26/14 02/26/23 documented as of this encounter
--- OUTSIDE RECORDS SUMMARY | 2024-06-24 01:05 | XMS_ITS | Encounter Summary ---
Author Organization [facility] Address [address] [place] [address] Care Team Providers Care Occupational Safety Specialist Name Role Phone José Manuel Omalley MD Primary Care Provider [phone] Encounter Details Date Type Department Care Team (Late st Contact Info) Description 03/28/2021 Lab Requisition [facility] Pathology & Laboratory Medicine - [facility] [address] [place], [place] [address] Outr Resulting Lab, Provider Social History Tobacco [...] AL ORDERABLES Final Result Performing Organization Address [facility] de Phone Number [facility] [address] [place] [address] * (ABNORMAL) COVID-19 TESTING (03/27/2021 19:42 EDT) COVID-19 rt-PCR Result Positive( AA) Negative 03/29/2021 10:57 EDT [facility] Comment: This test has not [...] was performed using the jose SARS-CoV-2 assay ([employer] on the Jose 6800 System Performing Lab Jose [address] [facility] Lab 03/29/2021 10:57 EDT [facility] Swab 03/27/2021 19:4 2 EDT 03/28/2021 15:52 EDT us Provider Outr Resulting Lab MICROBIOLOGY - GENER AL ORDERABLES Final Result Performing Organization Address [facility] de Phone Number [facility] [address] [place] [address] documented in this encounter Visit Diagnoses Not on filedocumented in this encounter Additional Health Concerns Infection Onset Date Last Indicated Resolved Time COVID-19 03/27/2021 03/27/2021 04/16/2021 22:1 5 EDT documented as of this encounter Care Teams Occupational Safety Specialist Relationship Specialty Start Date End Date José Manuel Omalley MD [address] [place] [address] [place] [phone] PCP - General 09/11/14 documented as of this encounter
--- OUTSIDE RECORDS SUMMARY | 2024-06-24 01:05 | XMS_ITS | Encounter Summary ---
Author Organization [facility] Address [facility] [place] [address] Care Team Providers Care Disk Recordist Name Role Phone Joe Johansen MD Primary Care Provider [phone] Reason for Visit * Auth/Cert - Closed Specialty Diagnoses / Procedures Referred By Contac t Referred To Contact Diagnoses Altered bowel habits, generalized abdomeninal pain, BRB{R. r/o IBD, pls obtain random colonic bx Procedures PRO COLONOSCOPY, DIAGNOSTIC PRO UPPER GI ENDOSCOPY, DIAGNOSTIC COLONOSCOPY, DIAGNOSTIC EGD, UPPER GI ENDOSCOPY Referral ID Status Reason Start Date Expiration Date Visits Re quested Visits Authorized [id number] Closed 1 1 Encounter Details Date Type Department Care Team (Latest Contact Info) Description 08/21/2015 7:44 AM EST - 08/21/2015 10:17 AM EST Hospital En[place] [address] Freddie Oswald MD [facility] [place] [address] Discharge Disposition: Home Social History Tobacco Use [...] or concerns, please call us Thursday-Thursday Clinic [phone] 8a-5p Same Day Endo [phone] 7a-8p Nights and weekends contact [phone] and ask to speak to the side sawyer director of accreditation. Follow up care is a ramirez part [...] When should you call for help? Call 301 anytime you think you may need emergency [...] can call us: Thursday-Thursday Same Day Endoscopy [phone] 7a-8p Otherwise contact [phone] and ask to speak to the side sawyer director of accreditation. Follow up care is a ramirez part [...] Report (08/21/2015 9:29 AM EST) Final Diagnosis [id number] ? Location: The signing pathologist has (i) [...] and bisected. (T1) ??ejr 08/22/2015 2:04 PM [facility] GI Biopsy 08/21/2015 9:29 AM EST 08/21/2015 9:29 AM EST GI Biopsy 08/21/2015 9:29 AM EST 08/21/2015 9:29 AM EST GI Biopsy 08/21/2015 9:29 AM EST 08/21/2015 9:29 AM EST GI Biopsy 08/21/2015 9:29 AM EST 08/21/2015 9:29 AM EST Freddie Oswald MD PATHOLOGY/CYTOLOGY [place] Performing Organization Address [facility] [place] [address] * Specimen to Pathology (surgical or derm) (08/21/2015 9:29 AM EST) AP Specimen 08/21/2015 9:29 AM EST 08/21/2015 9:29 AM EST Narrative [facility] - 08/21/2015 9:29 AM EST Specimen requisition ordered. ??Separate Pathology report to follow Freddie Oswald MD PATHOLOGY/CYTOLOGY [place] Performing Organization Address [facility] Co de Phone Number [facility] [place] [address] * Specimen to Pathology (surgical or derm) (08/21/2015 9:29 AM EST) AP Specimen 08/21/2015 9:29 AM EST 08/21/2015 9:29 AM EST Narrative [facility] - 08/21/2015 9:29 AM EST Specimen requisition ordered. ??Separate Pathology report to follow Freddie Oswald MD PATHOLOGY/CYTOLOGY [place] Performing Organization Address [facility] Co de Phone Number [facility] [place] [address] * Specimen to Pathology (surgical or derm) (08/21/2015 9:29 AM EST) AP Specimen 08/21/2015 9:29 AM EST 08/21/2015 9:29 AM EST Narrative [facility] - 08/21/2015 9:29 AM EST Specimen requisition ordered. ??Separate Pathology report to follow Freddie Oswald MD PATHOLOGY/CYTOLOGY [place] Performing Organization Address [facility] [place] [address] * Specimen to Pathology (surgical or derm) (08/21/2015 9:29 AM EST) AP Specimen 08/21/2015 9:29 AM EST 08/21/2015 9:29 AM EST Narrative [facility] - 08/21/2015 9:29 AM EST Specimen requisition ordered. ??Separate Pathology report to follow Freddie Oswald MD PATHOLOGY/CYTOLOGY [place] Performing Organization Address [facility] [place] [address] * COLONOSCOPY (08/21/2015 8:44 AM EST) COLONOSCOPY [facility] Endoscopy Patient Name: Jak Georges ? Procedure Date: 08/21/2015 8:44 AM ? N: [id number] ? Date of : 1985 ? Age: 30 ? Order #: [id number] ? Procedure: ? Colonoscopy Indications: ? Chronic diarrhea Providers: ? Freddie Oswald MD, Roxana Burns ? NERI Chauhan, Hilda Cochran, ? Bobby Burgess MD: ?Joe Johansen MD, Dara Rowland, ? DISTILLERY MILLER HELPER Medicines: ? Midazolam 1 mg IV, Fentanyl [...] (08/21/2015 8:43 AM EST) UPPER GI ENDOSCOPY [facility] Endoscopy Patient Name: Jak Georges ? Procedure Date: 08/21/2015 8:43 AM ? N: [id number] ? Date of : 1985 ? Age: 30 ? Order #: [id number] ? Procedure: ? Upper GI endoscopy Indications: ? abdominal pain and diarrhea Providers: ? Freddie Oswald MD, Roxana Burns ? NERI Chauhan, Hilda Cochran, ? Bobby Burgess MD: ?Joe Johansen MD, Dara Rowland, ? DISTILLERY MILLER HELPER Medicines: ? Midazolam 3 mg IV, Fentanyl [...] RN) documented in this encounter Care Teams Disk Recordist Relationship Specialty Start Date End Date Joe Johansen MD [address] [place] [phone] PCP - General 01/26/14 02/26/23 documented as of this encounter
--- OUTSIDE RECORDS SUMMARY | 2024-06-24 01:05 | XMS_ITS | Clinical Summary ---
Author Organization [facility] Address [address] [place] [address] Care Team Providers Care Dope Weigh Operator Name Role Phone José Manuel Omalley MD Primary Care Provider [phone] Social History Tobacco Use Types Packs/Day Years [...] 2024 Insurance [place] Care Teams Dope Weigh Operator Relationship Specialty Start Date End Date José Manuel Omalley MD [address] [place] [address] [place] [phone] PCP - General 09/11/14
--- OUTSIDE RECORDS SUMMARY | 2024-06-24 01:05 | XMS_ITS | Encounter Summary ---
[place] [address] Care Team Providers Care Wireless Sales Consultant Name Role Phone Joe Johansen MD Primary Care Provider [phone] Reason for Visit * Reason Onset Date Comments Referral 08/11/2014 Encounter Details Date Type Department Care Team (Late st Contact Info) Description 08/11/2014 [place] [phone] Johanna Keys Referral Social History Tobacco Use [...] Jak Georges Jr. : 1985 Phone number: [phone] (home) Mailing address: [address] [place] [address] Age: 29 y.o. Appointment date: PUT REMINDER [...] copy to your next appointment. Advance Directive charter pilot: N/A MyDH Do you have a [facility] account? No - Patient Declined documented in this encounter Plan of Treatment Not on file documented as of this encounter Visit Diagnoses Not on filedocumented in this encounter Care Teams Wireless Sales Consultant Relationship Specialty Start Date End Date Joe Johansen MD [address] [place] [phone] PCP - General 01/26/14 02/26/23 documented as of this encounter
--- OUTSIDE RECORDS SUMMARY | 2024-06-24 01:05 | XMS_ITS | Encounter Summary ---
Author Organization [facility] Address [facility] [place] [address] Care Team Providers Care Hospital Secretary Name Role Phone Joe Johansen MD Primary Care Provider [phone] Reason for Visit * Auth/Cert - Closed Specialty Diagnoses / Procedures Referred By Contac t Referred To Contact Diagnoses Altered bowel habits, generalized abdomeninal pain, BRB{R. r/o IBD, pls obtain random colonic bx Procedures PRO COLONOSCOPY, DIAGNOSTIC PRO UPPER GI ENDOSCOPY, DIAGNOSTIC COLONOSCOPY, DIAGNOSTIC EGD, UPPER GI ENDOSCOPY Referral ID Status Reason Start Date Expiration Date Visits Re quested Visits Authorized [id number] Closed 1 1 Encounter Details Date Type Department Care Team (Late st Contact Info) Description 08/21/2015 9:00 AM EST - 08/21/2015 10:00 AM EST [place] [address] Freddie Oswald MD [facility] [address] COLONOSCOPY FLEXIBLE, WITH BX (WRVU 3.56) Social [...] or concerns, please call us Thursday-Thursday Clinic [phone] 8a-5p Same Day Endo [phone] 7a-8p Nights and weekends contact [phone] and ask to speak to the red cross worker professor of religion. Follow up care is a ramirez part [...] When should you call for help? Call 501 anytime you think you may need emergency [...] can call us: Thursday-Thursday Same Day Endoscopy [phone] 7a-8p Otherwise contact [phone] and ask to speak to the red cross worker professor of religion. Follow up care is a ramirez part [...] Report (08/21/2015 9:29 AM EST) Final Diagnosis [id number] ? Location: The signing pathologist has (i) [...] and bisected. (T1) ??ejr 08/22/2015 2:04 PM [facility] GI Biopsy 08/21/2015 9:29 AM EST 08/21/2015 9:29 AM EST GI Biopsy 08/21/2015 9:29 AM EST 08/21/2015 9:29 AM EST GI Biopsy 08/21/2015 9:29 AM EST 08/21/2015 9:29 AM EST GI Biopsy 08/21/2015 9:29 AM EST 08/21/2015 9:29 AM EST Freddie Oswald MD PATHOLOGY/CYTOLOGY [place] Performing Organization Address [facility]/[place] [address] * Specimen to Pathology (surgical or derm) (08/21/2015 9:29 AM EST) AP Specimen 08/21/2015 9:29 AM EST 08/21/2015 9:29 AM EST Narrative [facility] - 08/21/2015 9:29 AM EST Specimen requisition ordered. ??Separate Pathology report to follow Freddie Oswald MD PATHOLOGY/CYTOLOGY [place] Performing Organization Address [facility] Co de Phone Number [facility] [place] [address] * Specimen to Pathology (surgical or derm) (08/21/2015 9:29 AM EST) AP Specimen 08/21/2015 9:29 AM EST 08/21/2015 9:29 AM EST Narrative [facility] - 08/21/2015 9:29 AM EST Specimen requisition ordered. ??Separate Pathology report to follow Freddie Oswald MD PATHOLOGY/CYTOLOGY [place] Performing Organization Address [facility] [place] [address] * Specimen to Pathology (surgical or derm) (08/21/2015 9:29 AM EST) AP Specimen 08/21/2015 9:29 AM EST 08/21/2015 9:29 AM EST Narrative [facility] - 08/21/2015 9:29 AM EST Specimen requisition ordered. ??Separate Pathology report to follow Freddie Oswald MD PATHOLOGY/CYTOLOGY [place] Performing Organization Address [facility] de Phone Number [place] [phone] * Specimen to Pathology (surgical or derm) (08/21/2015 9:29 AM EST) AP Specimen 08/21/2015 9:29 AM EST 08/21/2015 9:29 AM EST Narrative [facility] - 08/21/2015 9:29 AM EST Specimen requisition ordered. ??Separate Pathology report to follow Freddie Oswald MD PATHOLOGY/CYTOLOGY O [employer] Performing Organization Address [facility] [place] [address] * COLONOSCOPY (08/21/2015 8:44 AM EST) COLONOSCOPY [facility] Endoscopy Patient Name: Jak Georges ? Procedure Date: 08/21/2015 8:44 AM ? N: [id number] ? Date of : 1985 ? Age: 30 ? Order #: [id number] ? Procedure: ? Colonoscopy Indications: ? Chronic diarrhea Providers: ? Freddie Oswald MD, Roxana Burns ? NERI Chauhan, Hilda Cochran, ? Bobby Morris Referring : ?Joe Johansen MD, Dara Rowland, ? FIELD APPRAISER Medicines: ? Midazolam 1 mg IV, Fentanyl [...] GI ENDOSCOPY (08/21/2015 8:43 AM EST) Pathologist [facility] UPPER GI ENDOSCOPY [facility] Endoscopy Patient Name: Jak Georges ? Procedure Date: 08/21/2015 8:43 AM ? N: [id number] ? Date of : 1985 ? Age: 30 ? Order #: [id number] ? Procedure: ? Upper GI endoscopy Indications: ? abdominal pain and diarrhea Providers: ? Freddie Oswald MD, Roxana Burns ? Tien, NERI, Hilda Cochran, ? Bobby Burgess MD: ?Joe Johansen MD, Dara Rowland, ? FIELD APPRAISER Medicines: ? Midazolam 3 mg IV, Fentanyl [...] at 1003, Endoscopy (Day of Procedure) 0819 ([facility] ider: Nick Vallejo RN) PRN Medication [...] NERI) documented in this encounter Care Teams Hospital Secretary Relationship Specialty Start Date End Date Joe Johansen MD [address] [place] [phone] PCP - General 01/26/14 02/26/23 documented as of this encounter
--- OUTSIDE RECORDS SUMMARY | 2024-06-24 01:05 | XMS_ITS | Encounter Summary ---
Author Organization [facility] Address [facility] [place] [address] Care Team Providers Care Hr Specialist Name Role Phone Joe Johansen MD Primary Care Provider Encounter Details Date Type Department Care Team (Latest Contact Info) Description 01/26/2014 4:33 PM EDT - 01/26/2014 11:59 PM EDT Hospital Encounter XRay at [address] [address] CLINIC, DR SADIE Cruz, Alan Deng, PA [address] [place] [address] Discharge Disposition: Home Social History Tobacco Use [...] on filedocumented in this encounter Care Teams Hr Specialist Relationship Specialty Start Date End Date Joe Johansen MD [address] [place] [phone] PCP - General 01/26/14 02/26/23 documented as of this encounter
--- OUTSIDE RECORDS SUMMARY | 2024-06-24 01:05 | XMS_ITS | Encounter Summary ---
Author Organization [facility] Address [facility] [place] [address] Care Team Providers Care Public Accountant Name Role Phone Unknown Primary Care Provider Unavailabl e Reason for Visit * Reason Onset Date Comments Medication Refill 04/11/2018 Encounter Details Date Type Department Care Team (Late st Contact Info) Description 04/11/2018 Refill [place] [address] Mark Sarabia, [facility] [place] [address] Social History Tobacco Use Types Packs/Day Years [...] on filedocumented in this encounter Care Teams Public Accountant Relationship Specialty Start Date End Date Unknown None PCP - General 02/27/23 documented as of this encounter
--- OUTSIDE RECORDS SUMMARY | 2024-06-24 01:05 | XMS_ITS | Encounter Summary ---
[place] [address] Care Team Providers Care Customer Leader Name Role Phone Joe Johansen MD Primary Care Provider [phone] Encounter Details Date Type Department Care Team (Late st Contact Info) Description 08/22/2015 Orders [place] [address] Dara Rowland APRN Reflux esophagitis Social History Tobacco Use Types [...] esophagitis documented in this encounter Care Teams Customer Leader Relationship Specialty Start Date End Date Joe Johansen MD [address] [place] [phone] PCP - General 01/26/14 02/26/23 documented as of this encounter
--- OUTSIDE RECORDS SUMMARY | 2024-06-24 01:05 | XMS_ITS | Encounter Summary ---
Author Organization [facility] [place] [address] Care Team Providers Care Avionics Integration Engineer Name Role Phone Joe Johansen MD Primary Care Provider [phone] Reason for Visit * Reason Onset Date Comments Medication Refill 04/10/2016 Encounter Details Date Type Department Care Team (Late st Contact Info) Description 04/10/2016 Refill [place] [phone] Gloria Gomez CMA Social History Tobacco Use Types Packs/Day Years [...] on filedocumented in this encounter Care Teams Avionics Integration Engineer Relationship Specialty Start Date End Date Joe Johansen MD [address] [place] [phone] PCP - General 01/26/14 02/26/23 documented as of this encounter
--- OUTSIDE RECORDS SUMMARY | 2024-06-24 01:05 | XMS_ITS | Encounter Summary ---
Author Organization [facility] Address [address] [place] [address] Care Team Providers Care Pricing Lead Name Role Phone José Manuel Omalley MD Primary Care Provider [phone] Encounter Details Date Type Department Care Team (Late st Contact Info) Description 02/18/2018 Results Only [facility] [phone] Ruba Chinchilla MD [address] [place] [address] Social History Tobacco Use Types [...] ? JAK GEORGES ? Accession #: ? [id number] ? : ? 1985 (Age: 32) ??M [...] Acuña 02/19/2018 2:51 PM End of Report [facility] 02/18/2018 22:1 0 EDT 02/18/2018 22:10 EDT us Ruba Chinchilla MD PATHOLOGY ORDERABLES Fin al Result [facility] [address] [place] [address] documented in this encounter Visit Diagnoses Not on filedocumented in this encounter Care Teams Pricing Lead Relationship Specialty Start Date End Date José Manuel Omalley MD [address] [place] [address] [place] [phone] PCP - General 09/11/14 documented as of this encounter
--- OUTSIDE RECORDS SUMMARY | 2024-06-24 01:05 | XMS_ITS | Encounter Summary ---
Author Organization [facility] Address [facility] [place] [address] Care Team Providers Care Fagoter Name Role Phone Joe Johansen MD Primary Care Provider [phone] Reason for Visit * Reason Comments Follow-up Encounter Details Date Type Department Care Team (Latest Contact Info) Description 04/08/2016 11:00 AM EDT Office [place] [address] Mark Sarabia APRN [facility] [place] [address] Gastroesophageal reflux disease with esophagitis Social History [...] Biopsied. Recommendation: ?- Await pathology results. ? [place]: The colon mucosa (entire examined portion) appeared [...] esophagitis documented in this encounter Care Teams Fagoter Relationship Specialty Start Date End Date Joe Johansen MD [address] [place] [phone] PCP - General 01/26/14 02/26/23 documented as of this encounter
--- OUTSIDE RECORDS SUMMARY | 2024-06-24 01:05 | XMS_ITS | Encounter Summary ---
Author Organization [facility] Address [facility] [place] [address] Care Team Providers Care Director Of Epidemiology Name Role Phone Joe Johansen MD Primary Care Provider [phone] Reason for Visit * Reason Onset Date Comments Medication Refill 03/03/2017 Encounter Details Date Type Department Care Team (Late st Contact Info) Description 03/03/2017 Refill [place] [address] Mark Sarabia APRN [facility] [place]STRO[place] [address] Social History Tobacco Use Types Packs/Day Years [...] on filedocumented in this encounter Care Teams Director Of Epidemiology Relationship Specialty Start Date End Date Joe Johansen MD [address] [place] [phone] PCP - General 01/26/14 02/26/23 documented as of this encounter
--- OUTSIDE RECORDS SUMMARY | 2024-06-24 01:05 | XMS_ITS | Encounter Summary ---
Author Organization [facility] Address [address] [place] [address] Care Team Providers Care Shear Operator Helper Name Role Phone José Manuel Omalley MD Primary Care Provider [phone] Encounter Details Date Type Department Care Team (Latest Contact Info) Description 02/18/2018 10:46 EDT - 02/18/2018 23:59 EDT Hospital Encounter [address] [address] Unknown, Provider, MD Discharge Disposition: Home or [...] Code Departure Means Destination Home or Self Jail documented in this encounter Plan of Treatment Not on file documented as of this encounter Visit Diagnoses Not on filedocumented in this encounter Care Teams Shear Operator Helper Relationship Specialty Start Date End Date José Manuel Omalley MD [address] [place] [address] [place] [phone] PCP - General 09/11/14 documented as of this encounter
--- OUTSIDE RECORDS SUMMARY | 2024-06-24 01:05 | XMS_ITS | Encounter Summary ---
[place] [address] Care Team Providers Care Steam Box Tender Name Role Phone Joe Johansen MD Primary Care Provider [phone] Encounter Details Date Type Department Care Team (Late st Contact Info) Description 08/16/2014 Orders [place] [address] Charles Gutierrez DPMeme Heel pain, left Social History Tobacco Use [...] left documented in this encounter Care Teams Steam Box Tender Relationship Specialty Start Date End Date Joe Johansen MD [address] [place] [phone] PCP - General 01/26/14 02/26/23 documented as of this encounter
--- OUTSIDE RECORDS SUMMARY | 2024-06-24 01:05 | XMS_ITS | Encounter Summary ---
Author Organization [place] [address] Care Team Providers Care Director Mobile Media Solutions Name Role Phone Joe Johansen MD Primary Care Provider [phone] Reason for Visit * Reason Comments GI Problem * Consultation (Routine) - Closed Specialty Diagnoses / Procedures Referred By Conttrinidad t Referred To Contact Gastroenterology Diagnoses chronic abd pain with intermittent diarrhea/constipation suspect IBS Alan Cruz PA [address] [place] [address] [facility] [address] [place] [address] Referral ID Status Reason Start Date Expiration Date V isits Requested Visits Authorized [id number] Closed Consult, Test & Treat [facility] 05/16/2015 05/15/2016 1 1 Encounter Details Date Type Department Care Team (Late st Contact Info) Description 07/26/2015 10:00 AM EST Office [place] [phone] Dara Rowland APRN Generalized abdominal pain; Altered bowel habits; Chronic [...] Follow up 3 months Dara Rowland APRN [phone] documented in this encounter Progress Notes * [...] Rowland APRN Section of Gastroenterology and Hepatology [place] [phone] documented in this encounter Plan of Treatment [...] EST) IgA 361 70 - 400 mg/dL [facility] Blood specimen (specimen) 07/26/2015 11:19 AM EST 07/26/2015 11:24 AM EST Narrative Resulting Agency Comment Spec In Lab Santino Le MD CHEMISTRY ORDERABLES [facility] * Tissue transglutaminase, IgA (07/26/2015 11:19 AM EST) TTG IgA Ab 1.4 0.1 - 10.0 u/ml [facility] Comment: New methodology as of 10-31-2014 Negative = <7 U/mL Equivocal = 7-10 U/mL Positive = >10 U/mL Blood specimen (specimen) 07/26/2015 11:19 AM EST 07/26/2015 1:59 PM EST Narrative Resulting Agency Comment Spec In Lab Santino Le MD IMMUNOLOGY ORDERABLE S Performing Organization Address [facility] Phone Number [facility] * High Sensitivity CRP (07/26/2015 11:19 AM EST) C-Reactive Protein High Sensitivity 0.8 mg/L [facility] Comment: Interpretations: 1) For accurate cardiac risk [...] and Cardiovascular Disease. ??Circulation 2003; 107:499-511 2. Blayne PM. ??Clinical applications of C-reactive protein for cardiovascular disease detection and prevention. ??Circulation 2003; 107:363-369 Blood specimen (specimen) 07/26/2015 11:19 AM EST 07/26/2015 11:24 AM EST Narrative Resulting Agency Comment Spec In Lab Santino Le MD CHEMISTRY ORDERABLES Performing Organization Address [facility] Phone Number [facility] * Sedimentation rate (07/26/2015 11:19 AM EST) Sedimentation Rate Automated 7 0 - 15 mm/hr [facility] Blood specimen (specimen) 07/26/2015 11:19 AM EST 07/26/2015 11:24 AM EST Narrative Resulting Agency Comment Spec In Lab Santino Le MD HEMATOLOGY ORDERABLE S Performing Organization Address [facility] Phone Number [facility] documented in this encounter Visit Diagnoses Diagnosis Generalized abdominal pain Abdominal pain, generalized Altered bowel habits Other symptoms involving digestive system Chronic nausea Nausea alone Abdominal bloating Flatulence, eructation, and gas pain documented in this encounter Care Teams Director Mobile Media Solutions Relationship Specialty Start Date End Date Joe Johansen MD [address] [place] [phone] PCP - General 01/26/14 02/26/23 documented as of this encounter
--- OUTSIDE RECORDS SUMMARY | 2024-06-24 01:05 | XMS_ITS | Referral Summary ---
Author Organization [facility] Address [address] [place] [address] Care Team Providers Care Wireless Consultant Name Role Phone José Manuel Omalley MD Primary Care Provider [phone] Social History Tobacco Use Types Packs/Day Years [...] file Insurance MEDICAID [place] Care Teams Wireless Consultant Relationship Specialty Start Date End Date José Manuel Omalley MD [address] [place] [address] [place] [phone] PCP - General 09/11/14
--- NOTE | 2024-06-24 16:15 | DI.RAD_ITS ---
Exam(s) XR CERVICAL SPINE COMP 4-5V EXAM: XR CERVICAL SPINE COMP 4-5V CLINICAL HISTORY: Cervicalgia, M54.2, chronic neck pain, stiffness, locking, GUERRERO in C1 area. TECHNIQUE: 2D digital imaging was performed. Seven images were obtained. AP, odontoid, lateral and b ilateral oblique images were obtained. COMPARISON: CT HEAD AND CSPINE W/O CONTRAST from 08/19/2015 FINDINGS: The odontoid is intact. The lateral masses are well aligned. There is normal alignment of the cervi aubrey spine. There are degenerative changes seen at the C6-C7 disc level. The remaining disc levels ar e unremarkable. No acute fracture or subluxation is present. No significant neural foraminal stenosi s is present. The cervical thoracic junction is well maintained. The prevertebral soft tissues are unremarkable. Lung apices are clear. IMPRESSION: Mild degenerative changes seen at C6-C7. DATA REPOSITORY: RADIATION DOSE DELIVERED:
== END 2024-06-24 01:23 ==
LOC: DI 01:04
PROVIDERS: PCP Physician Assistant Medical; Visit Provider Nurse Practitioner Family
DX: M50.023 Cervical disc disorder at C6-C7 level with myelopathy (principal)
CPT/HCPCS: 72050

== ENCOUNTER 2024-10-12 15:58 | Outpatient (CLI) | payer OTHER, SELFPAY ==
--- NOTE | 2024-10-12 | DI.RAD_ITS ---
Exam(s) XR CHEST 2V PA LATERAL EXAM: XR CHEST 2V PA LATERAL CLINICAL HISTORY: Cough, R05.9. TECHNIQUE: 2D digital imaging was performed. COMPARISON: CR,XR XR PORTABLE CHEST AP from 03/27/2021 FINDINGS: 2 views: Heart size is normal. The mediastinum is not widened. There is significant left parahilar infiltrate extending from the hilum into the left upper lobe. Mi ld increased markings also noted in the left lower lobe. The right lung is clear. There are no pleu ral effusions. IMPRESSION: Significant left upper lobe parahilar infiltrate. No pleural effusions. Radiographic follow-up to resolution is recommended to rule neoplasm. DATA REPOSITORY: RADIATION DOSE DELIVERED:
== END 2024-10-12 16:18 ==
LOC: DI 15:59
PROVIDERS: PCP Physician Assistant Medical; Visit Provider Physician Assistant Medical
DX: R05.9 Cough, unspecified (principal); R91.8 Other nonspecific abnormal finding of lung field
CPT/HCPCS: 71046

== ENCOUNTER 2024-11-11 00:21 | Outpatient (CLI) | payer OTHER, SELFPAY ==
--- NOTE | 2024-11-11 15:35 | DI.RAD_ITS ---
Exam(s) XR CHEST 2V PA LATERAL EXAM: XR CHEST 2V PA LATERAL CLINICAL HISTORY: Pneumonia of MARIO due to infectious organism, J18.9, f/u from CXR 10/12/24 TECHNIQUE: 2D digital imaging was performed of the chest. Two images were obtained. PA and lateral views were obtained. COMPARISON: CR,XR XR PORTABLE CHEST AP from 03/27/2021 CR XR CHEST 2V PA LATERAL from 10/12/2024 FINDINGS: MEDIASTINUM: Normal. HEART: Normal. PULMONARY VASCULATURE: Normal. LUNGS: The left upper lobe infiltrate has resolved. No focal infiltrates are seen. PLEURAL SPACE: No pleural effusion or pneumothorax. BONE:Within normal limits for the patient's age. OTHER FINDINGS:Normal. IMPRESSION: No acute pulmonary findings. DATA REPOSITORY: RADIATION DOSE DELIVERED:
== END 2024-11-11 00:41 ==
LOC: DI 00:21
PROVIDERS: PCP Physician Assistant Medical; Visit Provider Family Medicine
DX: J18.9 Pneumonia, unspecified organism (principal)
CPT/HCPCS: 71046

== ENCOUNTER 2024-12-01 18:46 | Outpatient (REF) | payer OTHER, SELFPAY ==
[2024-12-01 18:55] LABS: COMMENT (LAB VIEW ONLY) 145.71 mg/dL; Microalb ug/mg Crea 3.8 ug/mg Cr
== END 2024-12-01 18:47 | disposition home or self-care (01) ==
LOC: NCHCN 18:46
PROVIDERS: PCP Physician Assistant Medical; Visit Provider Nurse Practitioner Family
DX: E11.9 Type 2 diabetes mellitus without complications (principal)
CPT/HCPCS: 82043; 82570

== ENCOUNTER 2025-06-05 19:11 | Outpatient (REF) | payer OTHER, SELFPAY ==
[2025-06-05 19:42] LABS: ALT 34 U/L (10-49); AST 23 U/L (<34); Albumin 4.4 g/dL (3.2-5.0); Alkaline Phosphatase 51 U/L (46-116); Anion Gap 10.7 mmol/L (3-11); BUN 13 mg/dL (9-23); Bilirubin, Total 0.50 mg/dL (0.2-1.2); CO2 24.3 mmol/L (20.0-31.0); Calcium 9.0 mg/dL (8.3-10.6); Chloride 104 mmol/L (98-107); Glucose 96 mg/dL (74-106); Potassium 3.6 mmol/L (3.5-5.1); Sodium 139 mmol/L (136-145); Total Protein 7.5 g/dL (5.7-8.2)
[2025-06-05 19:45] LABS: Hemoglobin A1C 6.4 % (<5.7); Vitamin D 25 Total 35 ng/mL (30-100)
== END 2025-06-05 19:12 | disposition home or self-care (01) ==
LOC: NCHCN 19:11
PROVIDERS: PCP Physician Assistant Medical; Visit Provider Nurse Practitioner Family
DX: E55.9 Vitamin D deficiency, unspecified (principal); E78.5 Hyperlipidemia, unspecified; E11.9 Type 2 diabetes mellitus without complications
CPT/HCPCS: 80053; 82306; 83036